=== PATIENT | female | born 1985 | race Caucasian/White ===

== ENCOUNTER 2019-02-11 12:11 | Outpatient (CLI) | payer BC, SELFPAY ==
--- NOTE | 2019-02-11 12:32 | XR_ITS ---
WS: [id number] Left shoulder, 3 views, 02/11/2019 Clinical Data: LEFT SHOULDER JOINT PAIN Comparison: None. Findings: No fractures or dislocations are seen. The AC joint is normal. The adjacent left clavicle, left scapu la and ribs are normal. The soft tissues are unremarkable. XR/XR shoulder LT min 2V* [id number] Impression: Negative left shoulder.
== END 2019-02-11 12:12 | disposition home or self-care (01) ==
LOC: RAD 12:15
PROVIDERS: Family Provider Family Medicine; PCP Family Medicine; Visit Provider Family Medicine
DX: M25.512 Pain in left shoulder (principal)
CPT/HCPCS: 73030

== ENCOUNTER 2019-02-11 12:19 | Outpatient (CLI) | payer BC, SELFPAY | END 2019-02-11 12:20 | disposition home or self-care (01) | LOC: RAD 12:20 | PROVIDERS: Family Provider Family Medicine; PCP Family Medicine; Visit Provider Family Medicine | DX: M25.512 Pain in left shoulder (principal) ==

== ENCOUNTER → 2019-02-15 15:09 | Outpatient (BNVA) | payer BC, SELFPAY | PROVIDERS: Family Provider Family Medicine; PCP Family Medicine; Visit Provider Nurse Practitioner | DX: M47.817 Spondylosis without myelopathy or radiculopathy, lumbosacral region (principal); F17.210 Nicotine dependence, cigarettes, uncomplicated; Z79.891 Long term (current) use of opiate analgesic | CPT/HCPCS: 99213 ==

== ENCOUNTER → 2019-03-15 11:07 | Outpatient (BNVA) | payer BC, SELFPAY | PROVIDERS: Family Provider Family Medicine; PCP Family Medicine; Visit Provider Nurse Practitioner | DX: M47.817 Spondylosis without myelopathy or radiculopathy, lumbosacral region (principal); F17.210 Nicotine dependence, cigarettes, uncomplicated; Z79.891 Long term (current) use of opiate analgesic | CPT/HCPCS: 99213; 99214 ==

== ENCOUNTER → 2019-03-22 11:59 | Outpatient (BNVA) | payer BC, SELFPAY | PROVIDERS: Family Provider Family Medicine; PCP Family Medicine; Visit Provider Family Medicine | DX: M47.817 Spondylosis without myelopathy or radiculopathy, lumbosacral region (principal); G43.709 Chronic migraine without aura, not intractable, without status migrainosus; F41.9 Anxiety disorder, unspecified; J20.8 Acute bronchitis due to other specified organisms; D50.9 Iron deficiency anemia, unspecified | CPT/HCPCS: 82728; 83540; 83550; 85025 ==

== ENCOUNTER 2019-05-31 | Outpatient (CLI) | payer SELFPAY | END 2019-05-31 23:00 | disposition home or self-care (01) | LOC: RADWPI 09-23 13:42 | PROVIDERS: PCP Family Medicine; Visit Provider Family Medicine | DX: M25.512 Pain in left shoulder (principal); N39.3 Stress incontinence (female) (male) | CPT/HCPCS: 80053; 81000; 87077; 87086; 87186 ==

== ENCOUNTER 2019-06-18 07:42 | Outpatient (RCR) | payer BC, SELFPAY | END 2019-07-07 23:59 | disposition home or self-care (01) | LOC: SPT 07:42 | PROVIDERS: PCP Family Medicine; Referring Provider Family Medicine; Visit Provider Family Medicine | DX: G89.29 Other chronic pain (principal); M25.511 Pain in right shoulder | CPT/HCPCS: 97110; 97162 ==

== ENCOUNTER → 2019-08-08 09:25 | Outpatient (BNVA) | payer BC, SELFPAY | PROVIDERS: PCP Family Medicine; Visit Provider Nurse Practitioner | DX: M54.41 Lumbago with sciatica, right side (principal); M54.42 Lumbago with sciatica, left side; M25.512 Pain in left shoulder; F17.210 Nicotine dependence, cigarettes, uncomplicated; Z79.891 Long term (current) use of opiate analgesic | CPT/HCPCS: 99214 ==

== ENCOUNTER → 2019-10-03 09:49 | Outpatient (BNVA) | payer BC, SELFPAY | PROVIDERS: PCP Family Medicine; Visit Provider Anesthesiology | DX: M54.42 Lumbago with sciatica, left side (principal); M54.41 Lumbago with sciatica, right side; M47.817 Spondylosis without myelopathy or radiculopathy, lumbosacral region; F17.219 Nicotine dependence, cigarettes, with unspecified nicotine-induced disorders; Z79.891 Long term (current) use of opiate analgesic | CPT/HCPCS: 99213; 99214 ==

== ENCOUNTER → 2019-12-06 09:43 | Outpatient (BNVA) | payer BC, SELFPAY | PROVIDERS: PCP Family Medicine; Visit Provider Anesthesiology | DX: M54.41 Lumbago with sciatica, right side (principal); M47.817 Spondylosis without myelopathy or radiculopathy, lumbosacral region; F17.219 Nicotine dependence, cigarettes, with unspecified nicotine-induced disorders; Z79.891 Long term (current) use of opiate analgesic | CPT/HCPCS: 99212; 99214 ==

== ENCOUNTER → 2019-12-11 16:47 | Outpatient (BNVA) | payer BC, SELFPAY | PROVIDERS: PCP Family Medicine; Visit Provider Family Medicine | DX: Z11.59 Encounter for screening for other viral diseases (principal); Z20.828 Contact with and (suspected) exposure to other viral communicable diseases; R05 Cough | CPT/HCPCS: 87635 ==

== ENCOUNTER → 2020-01-07 16:31 | Outpatient (BNVA) | payer BC, SELFPAY | PROVIDERS: PCP Family Medicine; Visit Provider Nurse Practitioner Family | DX: Z20.828 Contact with and (suspected) exposure to other viral communicable diseases (principal); J06.9 Acute upper respiratory infection, unspecified; R05 Cough | CPT/HCPCS: 87635 ==

== ENCOUNTER → 2020-02-04 09:49 | Outpatient (BNVA) | payer BC, SELFPAY | PROVIDERS: PCP Family Medicine; Visit Provider Anesthesiology | DX: M54.5 Low back pain (principal); M47.817 Spondylosis without myelopathy or radiculopathy, lumbosacral region; Z79.891 Long term (current) use of opiate analgesic; F17.219 Nicotine dependence, cigarettes, with unspecified nicotine-induced disorders | CPT/HCPCS: 80048; 83540; 99214 ==

== ENCOUNTER → 2020-03-09 15:51 | Outpatient (BNVA) | payer BC, SELFPAY | PROVIDERS: PCP Family Medicine; Visit Provider Family Medicine | DX: L65.9 Nonscarring hair loss, unspecified (principal) | CPT/HCPCS: 84443 ==

== ENCOUNTER → 2020-03-10 13:43 | Outpatient (BNVA) | payer BC, SELFPAY | PROVIDERS: PCP Family Medicine; Visit Provider Nurse Practitioner | DX: G89.29 Other chronic pain (principal); M47.817 Spondylosis without myelopathy or radiculopathy, lumbosacral region; M54.41 Lumbago with sciatica, right side; G43.709 Chronic migraine without aura, not intractable, without status migrainosus; F17.219 Nicotine dependence, cigarettes, with unspecified nicotine-induced disorders; Z79.891 Long term (current) use of opiate analgesic | CPT/HCPCS: 99214 ==

== ENCOUNTER → 2020-03-27 10:23 | Outpatient (BNVA) | payer BC, SELFPAY | PROVIDERS: PCP Family Medicine; Visit Provider Family Medicine | DX: L81.9 Disorder of pigmentation, unspecified (principal) | CPT/HCPCS: 88304 ==

== ENCOUNTER → 2020-05-13 09:03 | Outpatient (BNVA) | payer BC, SELFPAY | PROVIDERS: PCP Family Medicine; Visit Provider Nurse Practitioner | DX: G89.29 Other chronic pain (principal); M47.817 Spondylosis without myelopathy or radiculopathy, lumbosacral region; M25.511 Pain in right shoulder; M25.512 Pain in left shoulder; F17.219 Nicotine dependence, cigarettes, with unspecified nicotine-induced disorders; Z79.891 Long term (current) use of opiate analgesic; Z71.6 Tobacco abuse counseling | CPT/HCPCS: 99213; 99214 ==

== ENCOUNTER → 2020-07-08 09:53 | Outpatient (BNVA) | payer BC, SELFPAY | PROVIDERS: PCP Family Medicine; Visit Provider Nurse Practitioner | DX: G89.29 Other chronic pain (principal); M47.817 Spondylosis without myelopathy or radiculopathy, lumbosacral region; M25.512 Pain in left shoulder; M25.511 Pain in right shoulder; F17.219 Nicotine dependence, cigarettes, with unspecified nicotine-induced disorders; Z79.891 Long term (current) use of opiate analgesic; Z71.6 Tobacco abuse counseling | CPT/HCPCS: 99214 ==

== ENCOUNTER → 2020-09-09 09:27 | Outpatient (BNVA) | payer BC, SELFPAY | PROVIDERS: PCP Family Medicine; Visit Provider Nurse Practitioner | DX: G89.29 Other chronic pain (principal); M54.41 Lumbago with sciatica, right side; M47.817 Spondylosis without myelopathy or radiculopathy, lumbosacral region; M25.511 Pain in right shoulder; M25.512 Pain in left shoulder; G43.709 Chronic migraine without aura, not intractable, without status migrainosus; F17.219 Nicotine dependence, cigarettes, with unspecified nicotine-induced disorders; Z79.891 Long term (current) use of opiate analgesic; Z71.6 Tobacco abuse counseling | CPT/HCPCS: 99213 ==

== ENCOUNTER → 2020-09-22 12:17 | Outpatient (BNVA) | payer BC, SELFPAY | PROVIDERS: PCP Family Medicine; Visit Provider Nurse Practitioner | DX: R39.9 Unspecified symptoms and signs involving the genitourinary system (principal); L08.9 Local infection of the skin and subcutaneous tissue, unspecified; N39.0 Urinary tract infection, site not specified; Z71.89 Other specified counseling | CPT/HCPCS: 81000 ==

== ENCOUNTER → 2020-10-07 10:55 | Outpatient (BNVA) | payer BC, SELFPAY | PROVIDERS: PCP Family Medicine; Visit Provider Nurse Practitioner | DX: N39.0 Urinary tract infection, site not specified (principal) | CPT/HCPCS: 81000 ==

== ENCOUNTER → 2020-11-05 09:03 | Outpatient (BNVA) | payer BC, SELFPAY | PROVIDERS: PCP Family Medicine; Visit Provider Nurse Practitioner | DX: G89.29 Other chronic pain (principal); M47.817 Spondylosis without myelopathy or radiculopathy, lumbosacral region; M25.512 Pain in left shoulder; M25.511 Pain in right shoulder; G43.709 Chronic migraine without aura, not intractable, without status migrainosus; F17.219 Nicotine dependence, cigarettes, with unspecified nicotine-induced disorders; Z79.891 Long term (current) use of opiate analgesic; Z71.6 Tobacco abuse counseling | CPT/HCPCS: 99213; 99214 ==

== ENCOUNTER → 2020-12-24 09:08 | Outpatient (BNVA) | payer BC, SELFPAY | PROVIDERS: PCP Family Medicine; Visit Provider Anesthesiology | DX: G89.29 Other chronic pain (principal); M47.817 Spondylosis without myelopathy or radiculopathy, lumbosacral region; F17.219 Nicotine dependence, cigarettes, with unspecified nicotine-induced disorders; Z79.891 Long term (current) use of opiate analgesic; Z79.1 Long term (current) use of non-steroidal anti-inflammatories (NSAID) | CPT/HCPCS: 99214 ==

== ENCOUNTER 2021-02-13 22:32 | Emergency (ER) | payer BC, SELFPAY ==
--- NOTE | 2021-02-13 22:35 | ED_ITS ---
HPI - Anxiety General: Stated Complaint: ANXIETY Time Seen by Provider: 02/13/21 22:32 Source: patient and EMS Mode of arrival: EMS Limitations: no limitations History of Present Illness: HPI narrative: 35-year-old female states that she has a long history of anxiety she has been out of her venlafaxine has been taking her BuSpar but states she just had a panic attack roughly an hour ago she states she was hyperventilating she states that since being in the [place] she feels a lot better here she is comfortable able to speak in full sentences she denies any suicidal homicidal ideations denies any recent drug use. Associated symptoms: Deny chest pain, chills, fever(s), headache(s), nausea or vomiting Review of Systems Const: Denies: fever(s), chills, body aches or change in appetite Eyes: Denies: blurry vision or eye discomfort ENMT: Denies: throat pain or dental pain Card: Denies: chest pain Resp: Denies: dyspnea GI: Denies: abdominal pain, nausea, vomiting or diarrhea : Denies: dysuria Musc: Denies: neck pain or back pain Skin/Breast: Denies: rash Neuro: Denies: headache(s) Psych: Reports: anxiety Willie/Lymph: Denies: easy bruising All/Imm: Denies: urticaria PFSH ED PFSH: Medical History (Updated 02/13/21 @ 22:36 by Sayda Chavez MD) Acute bacterial bronchitis Acute URI Anxiety and depression Chronic migraine w/o aura w/o status migrainosus, not intractable Chronic pain in right shoulder Cough with exposure to COVID-19 virus Iron deficiency anemia Low back pain radiating to right leg Smoker unmotivated to quit Spondylosis without myelopathy or radiculopathy, lumbosacral region Surgical History Hx of section 2004, 2009, 2017 S/P arthroscopy of right shoulder toal of 2 surgeries 2010-repaired the labrem and rotator, 2013 debrievment to repair rotator S/P total hysterectomy (~10/11/18) TVH OVARIES SPARED. S/P tubal ligation Family History Mother Diabetes Hypertension Grandmother Diabetes Cancer SKIN CANCER Hypertension Maternal grandmother Family/Other Hypertension Maternal uncle Ovarian cancer Cousin Maternal aunt Other Lung disease Denies family history of Colon cancer Breast cancer Uterine cancer Social History Alcohol intake: never History of recent travel: No Additional social history: - Tobacco use: Current everyday smoker; 1pk daily Alcohol use: Social Drug use: Denies Physical Exam Const: COMMON NORMALS: no acute distress, patient oriented x3 and healthy appearing HENMT: COMMON NORMALS: normocephalic and atraumatic HEAD & SCALP: normocephalic and atraumatic Eye: COMMON NORMALS: Equal, round and reactive pupils present and EOMs intact bilaterally PUPIL: Yes Equal, round and reactive pupils present Neck/C-Spine: COMMON NORMALS: full ROM and supple Chest: COMMONS NORMALS: normal inspection of the chest and normal palpation of entire chest wall Resp: COMMON NORMALS: normal respiratory effort, No retractions, No use of accessory muscles and clear to auscultation bilaterally AUSCULTATION: clear to auscultation bilaterally Cardio: COMMON NORMALS: regular rate, regular rhythm and No murmurs present (Cardio) RATE: regular rate RHYTHM: regular rhythm GI: COMMON NORMALS: Normal to inspection, nondistended, normoactive bowel sounds present, Soft to palpation, non-tender and no masses PALPATION: Yes Soft to palpation Extremity: COMMON NORMALS: normal to inspection and full ROM Neuro: COMMON NORMALS: patient oriented x3, moves all extremities and no focal motor deficits Psych: COMMON NORMALS: mental status grossly normal, Normal thought process present and cooperative MOOD & AFFECT: Yes anxious THOUGHT PROCESS: Normal thought process present Skin: COMMON NORMALS: no rashes or lesions noted and no wounds GENERAL SKIN EXAM: no rashes or lesions noted MDM - Anxiety MDM Narrative: Medical decision making narrative: Patient presents here with anxiety she feels much improved on the ambulance ride here she is not suicidal not homicidal she states she just like an Ativan and go since she had felt improved she has long history of anxiety and has these breakthrough attacks she is also been out of her venlafaxine will refill that have her follow-up with PCP and return if worsening. Discharge Plan Discharge Patient Disposition: Home Clinical Impression: Anxiety Condition: Stable Prescriptions: Continued venlafaxine 75 mg capsule,extended release 24hr 75 mg PO DAILY Qty: 30 RF: 5 No Action venlafaxine 150 mg capsule,extended release 24hr 150 mg PO QDAY Qty: 30 RF: 5 hydrocodone-acetaminophen 10-325 mg tablet 1 tab PO .5 times daily PRN (Reason: pain) 30 Days Qty: 150 RF: 0 hydrocodone-acetaminophen 10-325 mg tablet 1 tab PO .five times daily PRN (Reason: pain) 30 Days Qty: 150 RF: 0 albuterol sulfate [Ventolin HFA] 90 mcg/actuation HFA aerosol inhaler 2 puff INHALATION Q6H PRNRF: 0 povidone-iodine [Betadine Swabsticks] 10 % swab 1 applic topical ONCE PRN (Reason: disinfection) Qty: 1 RF: 0 lidocaine (PF) 20 mg/mL (2 %) solution 3 mg SUBCUT ONCE PRN (Reason: anesthesia) Qty: 0.15 RF: 0 ibuprofen 800 mg tablet 800 mg PO Q8H Qty: 90 RF: 2 tizanidine 4 mg capsule 4 mg PO TID PRN (Reason: muscle spasticity) Qty: 90 RF: 2 gabapentin 800 mg tablet 800 mg PO QID Qty: 120 RF: 2 buspirone 7.5 mg tablet 7.5 mg PO BID PRN (Reason: anxiety) Qty: 60 RF: 0 topiramate 50 mg tablet 50 mg PO BID Qty: 60 RF: 5 Discharge Orders: Discharge ED (Routine); Ordered 02/13/21 Ordered By: Sayda Chavez Referrals: Casandra Gilliam DO [Primary Care Provider] - 1-3 days Discharge Diet: Advance as tolerated Discharge Activity: Resume usual activity Patient Instructions: Opioid Safety Coding Level of Care Code ED Bilingual Interpreter for Ian Jarrell
[2021-02-13 22:37] VITALS: BP 124/93; PULSE 115; RESP 18; TEMP 37.2; O2SAT 96; BMI 25.8
[2021-02-13] MEDS: LORazepam 2 mg Tablet PO (22:39)
[2021-02-13 22:43] VITALS: BP 121/85; PULSE 110; RESP 18; O2SAT 96
== END 2021-02-13 22:44 | disposition home or self-care (01) ==
PROVIDERS: Emergency Provider Emergency Medicine; PCP Family Medicine
DX: F41.9 Anxiety disorder, unspecified (principal); F32.A Depression, unspecified; F17.210 Nicotine dependence, cigarettes, uncomplicated
CPT/HCPCS: 99283

== ENCOUNTER 2021-04-28 16:59 | Emergency (ER) | payer BC, SELFPAY ==
[2021-04-28 17:12] VITALS: BMI 25.2
--- NOTE | 2021-04-28 17:23 | W.ED.GENADLT ---
HPI - General Adult General: Chief complaint: General Medical Stated complaint: Abcess beneath arm Time Seen by Provider: 04/28/21 17:23 History of Present Illness: 36-year-old female comes in today for complaints of swollen tender lesion to the left axilla. Patient reports symptoms for the last 3 to 4 days. Worsening tenderness is noted. Patient is alert and oriented. Patient moves extremities well. Associated symptoms: Reports chest pain and dyspnea Review of Systems General: Reports: 10 or more systems reviewed and unremarkable except in HPI and below Card: Reports: chest pain Resp: Reports: dyspnea Musc: Reports: extremity pain Skin/Breast: Reports: new lesions PFSH ED PFSH: Medical History Acute bacterial bronchitis Acute URI Anxiety and depression Chronic migraine w/o aura w/o status migrainosus, not intractable Chronic pain in right shoulder Cough with exposure to COVID-19 virus Iron deficiency anemia Low back pain radiating to right leg Smoker unmotivated to quit Spondylosis without myelopathy or radiculopathy, lumbosacral region Surgical History Hx of section 2004, 2009, 2017 S/P arthroscopy of right shoulder toal of 2 surgeries 2010-repaired the labrem and rotator, 2013 debrievment to repair rotator S/P total hysterectomy (~10/11/18) TVH OVARIES SPARED. S/P tubal ligation Family History Mother Diabetes Hypertension Grandmother Diabetes Cancer SKIN CANCER Hypertension Maternal grandmother Family/Other Hypertension Maternal uncle Ovarian cancer Cousin Maternal aunt Other Lung disease Denies family history of Colon cancer Breast cancer Uterine cancer Social History Smoking and tobacco status: current every day smoker cigarettes Packs smoked per day: 1 History of recent travel: No Additional social history: - Tobacco use: Current everyday smoker; 1pk daily Alcohol use: Social Drug use: Denies Physical Exam Const: COMMON NORMALS: alert HENMT: COMMON NORMALS: normocephalic HEAD & SCALP: normocephalic Resp: COMMON NORMALS: normal respiratory effort Cardio: COMMON NORMALS: regular rate and regular rhythm RATE: regular rate RHYTHM: regular rhythm Extremity: LEFT UPPER EXTREMITY: Yes upper arm (Erythematous axillary lesion) Neuro: SENSORIUM/ORIENTATION: Yes alert Psych: COMMON NORMALS: cooperative Skin: COMMON NORMALS: turgor normal GENERAL SKIN EXAM: turgor normal LESIONS: lesion noted (Left axilla, 3 cm area of redness, central fluctuance) Procedures Abscess I/D Site: upper extremity (Left axilla) Side (if applicable): left Sedation/analgesia: none Technique: incised with #11 blade Amount of fluid expressed (mL): 2 Irrigation: No Packing used?: none Complications: pain [facility] - General Adult Medical Decision Making 36-year-old female comes in with a small abscess to the left axilla. On exam there is a area of erythema approximately 3 cm with a central fluctuant 1 cm abscess. No signs of extensive cellulitis is noted. Differential diagnosis includes but not limited to HSP, folliculitis, abscess. Stab incision was performed on the abscess with good results of drainage of purulent fluid. Patient tolerated well. Patient was given 1 hydrocodone 7-1/2 mg to help with pain. Patient was started on Bactrim DS 1 tablet twice a day for 7 days. Patient was recommended to follow-up as needed or return to the ER for worsening symptoms. Patient reported understanding. Discharge Plan Discharge Patient Disposition: Home Clinical Impression: Abscess of axilla, left Condition: Stable Prescriptions: Continued Bactrim DS 800-160 mg tablet 1 tab PO BID 7 Days Qty: 14 0RF No Action venlafaxine 150 mg capsule,extended release 24hr 150 mg PO QDAY Qty: 90 1RF Rx Instructions: 340 B hydrocodone-acetaminophen 10-325 mg tablet 1 tab PO .5 times daily PRN (Reason: pain) 30 Days Qty: 150 0RF Rx Instructions: Fill on or after 03/13/21 340-B hydrocodone-acetaminophen 10-325 mg tablet 1 tab PO .five times daily PRN (Reason: pain) 30 Days Qty: 150 0RF Rx Instructions: Fill on or after 04/11/21 340-B gabapentin 800 mg tablet 800 mg PO QID 30 Days Qty: 120 1RF tizanidine 4 mg capsule 4 mg PO TID PRN (Reason: muscle spasticity) 30 Days Qty: 90 1RF Rx Instructions: 340-B albuterol sulfate [Ventolin HFA] 90 mcg/actuation HFA aerosol inhaler 2 puff INHALATION Q6H PRN0RF povidone-iodine [Betadine Swabsticks] 10 % swab 1 applic topical ONCE PRN (Reason: disinfection) Qty: 1 0RF lidocaine (PF) 20 mg/mL (2 %) solution 3 mg SUBCUT ONCE PRN (Reason: anesthesia) Qty: 0.15 0RF ibuprofen 800 mg tablet 800 mg PO Q8H Qty: 90 2RF Rx Instructions: 340-B buspirone 7.5 mg tablet 7.5 mg PO BID PRN (Reason: anxiety) Qty: 60 0RF venlafaxine 75 mg capsule,extended release 24hr 75 mg PO DAILY Qty: 90 1RF Rx Instructions: Take with 150 mg pill 340 B Discharge Orders: Discharge ED (Routine); Ordered 04/28/21 Ordered By: Roberto Hodgson Referrals: Casandra Gilliam DO [Primary Care Provider] - Discharge Diet: Usual diet Discharge Activity: Increase activity as tolerated Patient Instructions: Abscess Incision and Drainage (DC) Activity Restrictions/Additional Instructions: Use warm moist pack to the area and gentle massage to express further drainage. Drink plenty of water with antibiotic. Follow-up with primary care in 3 days for recheck. Return to ER for new concerns. Coding Level of Care Code ED Employment Agency Manager for Ian Jarrell
[2021-04-28] MEDS: HYDROcodone-acetaminophen 7.5-325 mg Tablet 1 TAB PO (18:19)
== END 2021-04-28 19:03 | disposition home or self-care (01) ==
PROVIDERS: Emergency Provider Nurse Practitioner Family; PCP Family Medicine
DX: L02.412 Cutaneous abscess of left axilla (principal); F17.210 Nicotine dependence, cigarettes, uncomplicated
CPT/HCPCS: 10060; 99283

== ENCOUNTER 2021-06-19 22:04 | Emergency (ER) | payer BC, MEDICAID, SELFPAY ==
[2021-06-19 22:07] VITALS: BP 138/75; PULSE 91; RESP 14; TEMP 36.9; O2SAT 99
[2021-06-19 22:37] LABS: HCG Qualitative Urine. Negative (Negative)
[2021-06-19 22:43] LABS: Add Urine Microscopic? YES; Bilirubin Urine Neg (Negative); Blood Urine 3+ (Negative); Glucose Urine UA Norm (Normal); Ketones Urine Negative (Negative); Leukocyte Esterase Urine 2+ (Negative); Nitrate Urine Negative (Negative); Protein Urine Neg (Negative); Specific Gravity, Urine 1.015 (1.005-1.030); Urine Appearance Clear (CLEAR); Urine Color Yellow (Yellow); Urobilinogen Urine Norm (Negative); pH Urine 7 (5-7)
[2021-06-19 22:44] LABS: Add Urine Culture? Yes; Bacteria Urine TRACE /hpf; RBC Urine 0-4 /hpf (0-2); Trichomonas Urine 1+ /hpf; WBC Urine 25-40 /hpf (0-5)
--- NOTE | 2021-06-19 22:54 | ED_ITS ---
HPI - Female Genitourinary General: Chief complaint: Urogenital-Female Stated complaint: PT states kidney infection Time Seen by Provider: 06/19/21 22:53 History of Present Illness: 36-year-old female comes in today with complaints of urinary difficulty and discomfort. Patient reports noticing some blood in the urine. Patient reports no significant abnormal bleeding or vaginal discharge. Patient appears mildly unwell but not toxic. Patient appears in mild to moderate pain. Associated symptoms: Deny nausea Review of Systems General: Reports: 10 or more systems reviewed and unremarkable except in HPI and below Const: Denies: fever(s) Card: Denies: chest pain Resp: Denies: dyspnea GI: Denies: nausea or vomiting : Reports: difficulty voiding and hematuria Skin/Breast: Denies: rash PFSH ED PFSH: Medical History Acute bacterial bronchitis Acute URI Anxiety and depression Chronic migraine w/o aura w/o status migrainosus, not intractable Chronic pain in right shoulder Cough with exposure to COVID-19 virus Iron deficiency anemia Low back pain radiating to right leg Smoker unmotivated to quit Spondylosis without myelopathy or radiculopathy, lumbosacral region Surgical History Hx of section 2004, 2009, 2017 S/P arthroscopy of right shoulder toal of 2 surgeries 2010-repaired the labrem and rotator, 2013 debrievment to repair rotator S/P total hysterectomy (~10/11/18) TVH OVARIES SPARED. S/P tubal ligation Family History Mother Diabetes Hypertension Grandmother Diabetes Cancer SKIN CANCER Hypertension Maternal grandmother Family/Other Hypertension Maternal uncle Ovarian cancer Cousin Maternal aunt Other Lung disease Denies family history of Colon cancer Breast cancer Uterine cancer Social History Smoking and tobacco status: current every day smoker cigarettes Packs smoked per day: 1 History of recent travel: No Additional social history: - Tobacco use: Current everyday smoker; 1pk daily Alcohol use: Social Drug use: Denies Physical Exam Const: COMMON NORMALS: alert HENMT: COMMON NORMALS: normocephalic HEAD & SCALP: normocephalic Neck/C-Spine: COMMON NORMALS: full ROM Neuro: SENSORIUM/ORIENTATION: Yes alert Course Vital Signs: Vital signs: Vital Signs Temperature 98.5 F 06/19/21 22:07 Pulse Rate 84 06/20/21 00:19 Respiratory Rate 18 06/20/21 00:19 Blood Pressure 121/78 06/20/21 00:19 Pulse Oximetry 99 06/20/21 00:19 MDM - Female Medical Decision Making Patient comes in today for complaints of urinary discomfort. Patient noticed some blood in the urine. On exam abdomen soft nontender. Bowel sounds were normal. Skin was warm and dry. Vital signs were normal. Differential diagnosis include UTI, STI, renal calculi. Urinalysis did indicate white blood cells and also noted trichomonas. Urine was then sent to lab for culture and gonorrhea and chlamydia. Patient be treated with 1 g Rocephin, 2 g metronidazole, and doxycycline. Patient be continued on doxycycline 100 mg twice a day for 7 days on discharge. Patient was recommended to follow-up with primary care in 1 week for recheck. Patient reported understanding of care plan and need for follow-up and need for secondary protection against STIs. Lab Data Laboratory Results HCG, Qual Negative (Negative) 06/19/21 22:09 Urine Color Yellow (Yellow) 06/19/21 22: Urine Appearance Clear (CLEAR) 06/19/21 22:09 Urine pH 7 (5-7) 06/19/21 22:09 Ur Specific Hardy 1.015 (1.005-1.030) 06/19/21 22:09 Urine Protein Neg (Negative) 06/19/21 22:09 Urine Glucose (UA) Norm (Normal) 06/19/21 22:09 Urine Ketones Negative (Negative) 06/19/21 22:09 Urine Blood 3+ (Negative) H 06/19/21 22:09 Urine Nitrate Negative (Negative) 06/19/21 22:09 Urine Bilirubin Neg (Negative) 06/19/21 22:09 Urine Urobilinogen Norm mg/dL (Negative) 06/19/21 22:09 Ur Leukocyte Esterase 2+ (Negative) H 06/19/21 22:09 Urine RBC 0-4 /hpf (0-2) H 06/19/21 22:09 Urine WBC 25-40 /hpf (0-5) H 06/19/21 22:09 Ur Squamous Epith Cells 5-10 /hpf (0-5) H 06/19/21 22:09 Amorphous Sediment Not Reportable 06/19/21 22:09 Urine Bacteria Trace /hpf (NONE) 06/19/21 22:09 Urine Trichomonas 1+ /hpf H 06/19/21 22:09 Discharge Plan Discharge Patient Disposition: Home Clinical Impression: Trichomoniasis Urinary tract infection Qualifiers: Urinary tract infection type: site unspecified Hematuria presence: with hematuria Qualified Code(s): N39.0 - Urinary tract infection, site not specified Condition: Stable Prescriptions: New doxycycline monohydrate 100 mg capsule 100 mg PO BID 7 Days Qty: 14 0RF No Action venlafaxine 150 mg capsule,extended release 24hr 150 mg PO QDAY Qty: 90 1RF Rx Instructions: 340 B hydrocodone-acetaminophen 10-325 mg tablet 1 tab PO .5 times daily PRN (Reason: pain) 30 Days Qty: 150 0RF Rx Instructions: Fill on or after 03/13/21 340-B tizanidine 4 mg capsule 4 mg PO TID PRN (Reason: muscle spasticity) 30 Days Qty: 90 1RF Rx Instructions: 340-B albuterol sulfate [Ventolin HFA] 90 mcg/actuation HFA aerosol inhaler 2 puff INHALATION Q6H PRN0RF povidone-iodine [Betadine Swabsticks] 10 % swab 1 applic topical ONCE PRN (Reason: disinfection) Qty: 1 0RF lidocaine (PF) 20 mg/mL (2 %) solution 3 mg SUBCUT ONCE PRN (Reason: anesthesia) Qty: 0.15 0RF ibuprofen 800 mg tablet 800 mg PO Q8H Qty: 90 2RF Rx Instructions: 340-B buspirone 7.5 mg tablet 7.5 mg PO BID PRN (Reason: anxiety) Qty: 60 0RF venlafaxine 75 mg capsule,extended release 24hr 75 mg PO DAILY Qty: 90 0RF Rx Instructions: Take with 150 mg pill 340 B gabapentin 800 mg tablet 800 mg PO QID 30 Days Qty: 120 1RF hydrocodone-acetaminophen 10-325 mg tablet 1 tab PO .five times daily PRN (Reason: pain) 30 Days Qty: 150 0RF Rx Instructions: Refill on or after 06/12/2021, Dr. Gilliam's patient Bactrim DS 800-160 mg tablet 1 tab PO BID 7 Days Qty: 14 0RF Discharge Orders: Discharge ED (Routine); Ordered 06/19/21 Ordered By: Roberto Hodgson Referrals: Casandra Gilliam DO [Primary Care Provider] - Discharge Diet: Usual diet Discharge Activity: Increase activity as tolerated Patient Instructions: Urinary Tract Infection in Women (ED) Activity Restrictions/Additional Instructions: Drink plenty of water with medication. Take doxycycline 100 mg twice a day for the next 7 days. Follow-up with primary care in 1 week for recheck. Return to ER for new concerns. We will notify you of any outstanding labs or your doctor may call to find out the results. Coding Level of Care Code ED Product Assurance Engineer for Anag Fwd Exam Expanded Problem Focused
[2021-06-19] MEDS: HYDROcodone-acetaminophen 5-325 mg Tablet 1 TAB PO (23:12)
[2021-06-19] MEDS: metroNIDAZOLE 500 MG Tablet 2000 MG PO (23:13)
[2021-06-19] MEDS: doxycycline 100 mg Tablet PO (23:13)
[2021-06-19] MEDS: cefTRIAXone 1,000 MG in lidocaine 1% 2.1 ML 9999 MG IM (23:17)
[2021-06-20 00:19] VITALS: BP 121/78; PULSE 84; RESP 18; O2SAT 99
== END 2021-06-20 00:09 | disposition home or self-care (01) ==
PROVIDERS: Emergency Medicine; Emergency Provider Nurse Practitioner Family; PCP Family Medicine
DX: N39.0 Urinary tract infection, site not specified (principal); R31.9 Hematuria, unspecified; A59.9 Trichomoniasis, unspecified
CPT/HCPCS: 81001; 81025; 87077; 87086; 87186; 87491; 87591; 96372; 99283; J0696

== ENCOUNTER → 2021-10-27 17:15 | Outpatient (BNVA) | payer MEDICAID, SELFPAY | PROVIDERS: PCP Family Medicine; Visit Provider Registered Nurse Neonatal Intensive Care | DX: J02.9 Acute pharyngitis, unspecified (principal) | CPT/HCPCS: 87880 ==

== ENCOUNTER 2022-01-21 14:25 | Outpatient (CLI) | payer MEDICAID, SELFPAY ==
--- NOTE | 2022-01-21 14:31 | MR_ITS ---
WS: [id number] MRI LUMBAR SPINE NONCONTRAST TECHNIQUE: Sagittal T1, T2 and STIR imaging. Axial T1 and T2 imaging. CLINICAL INFORMATION: VERTBROGENIC LOW BACK PAIN COMPARISON: None. FINDINGS: Counting performed from the craniocervical junction. Mild lumbar curve. No acute compression. No high-grade central canal stenosis. Mild disc bulging wors e L4-L5 and L5-S1. L1-L2: Normal. L2-L3: No significant disc bulging. Spinal canal and foramen are patent. L3-L4: Mild annular bulging. Slight effacement of the ventral thecal sac. Mild facet arthropathy. Spi nal canal and foramen are patent. L4-L5: Mild disc bulging with slight effacement of ventral thecal sac. Impingement subarticular reces s bilaterally. Mild facet arthropathy. Foramen are patent. L5-S1: Shallow central disc protrusion. Slight contact of the traversing S1 nerve roots bilaterally. Mild central canal stenosis. Moderate facet arthropathy. Foramen are patent. Visualized pelvic bony structures: Normal. Paravertebral soft tissues: Normal. MR/MR lumbar spine wo con* [id number] IMPRESSION: 1. Mild lumbar curve. No acute compression. No high-grade central canal stenos is. 2. Mild annular bulging L4-L5 with slight narrowing of the subarticular recess bilaterally. Small annular fissure at this level. 3. Shallow central disc protrusion L5-S1 with slight impingement traversing S1 nerve roots bilaterally. Mild central canal stenosis. 4. Mild facet arthropathy L4-L5 and L5-S1.
== END 2022-01-21 14:26 | disposition home or self-care (01) ==
LOC: RAD 14:25
PROVIDERS: PCP Family Medicine; Visit Provider Anesthesiology Pain Medicine
DX: M54.51 Vertebrogenic low back pain (principal); M47.817 Spondylosis without myelopathy or radiculopathy, lumbosacral region; M48.07 Spinal stenosis, lumbosacral region
CPT/HCPCS: 72148

== ENCOUNTER 2022-05-15 09:53 | Emergency (ER) | payer MEDICAID, SELFPAY ==
[2022-05-15 09:57] VITALS: BP 141/81; PULSE 80; RESP 16; TEMP 36.7; O2SAT 100
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
--- NOTE | 2022-05-15 10:03 | XRR_ITS ---
PROCEDURE INFORMATION: Exam: XR Right Hand Exam date and time: 05/15/2022 10:11 AM Age: 37 years old Clinical indication: Two scratches to top of hand; Additional info: Injury TECHNIQUE: Imaging protocol: Radiologic exam of the right hand. Views: 3 or more views. COMPARISON: No relevant prior studies available. FINDINGS: Bones/joints: The scapholunate and lunotriquetral intervals are maintained. No chondrocalcinosis is seen. No fracture, dislocation or subluxation. No periosteal reaction or supsicious bone lesion. Soft tissues: Mild dorsal soft tissue swelling. XR/XR hand RT min 3V* [id number] IMPRESSION: 1. Mild dorsal soft tissue swelling. 2. No acute fracture is seen.
[2022-05-15] MEDS: tetanus-dipt-pertussis 0.5 mL SDV IM (10:16)
[2022-05-15 10:36] VITALS: BP 141/81; PULSE 80; RESP 16; TEMP 36.7; O2SAT 100
== END 2022-05-15 10:37 | disposition home or self-care (01) ==
PROVIDERS: Emergency Provider Physician Assistant; PCP Family Medicine
DX: S61.411A Laceration without foreign body of right hand, initial encounter (principal); F17.210 Nicotine dependence, cigarettes, uncomplicated; W26.0XXA Contact with knife, initial encounter; Z23 Encounter for immunization
CPT/HCPCS: 12001; 73130; 90471; 90715; 99283

== ENCOUNTER 2022-05-16 20:19 | Emergency (ER) | payer MEDICAID, SELFPAY ==
[2022-05-16 20:33] VITALS: BP 137/79; PULSE 70; RESP 16; TEMP 36.8; O2SAT 100
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
[2022-05-16] MEDS: silver nitrate applicator 1 EACH TOPICAL (20:53)
== END 2022-05-16 21:12 | disposition home or self-care (01) ==
PROVIDERS: Emergency Provider Emergency Medicine; PCP Family Medicine
DX: S61.411A Laceration without foreign body of right hand, initial encounter (principal); F17.210 Nicotine dependence, cigarettes, uncomplicated; W26.0XXA Contact with knife, initial encounter
CPT/HCPCS: 99283

== ENCOUNTER → 2022-06-30 17:06 | Outpatient (BNVA) | payer MEDICAID, SELFPAY | PROVIDERS: PCP Family Medicine; Visit Provider Family Medicine | DX: R35.0 Frequency of micturition (principal) | CPT/HCPCS: 81000; 87077; 87086; 87184 ==

== ENCOUNTER → 2022-11-11 10:06 | Outpatient (BNVA) | payer MEDICAID, SELFPAY | PROVIDERS: PCP Family Medicine; Visit Provider Family Medicine | DX: F41.9 Anxiety disorder, unspecified (principal); F32.1 Major depressive disorder, single episode, moderate | CPT/HCPCS: 80053; 80061; 84439; 84443; 85025 ==

== ENCOUNTER → 2022-12-06 12:09 | Outpatient (BNVA) | payer MEDICAID, SELFPAY | PROVIDERS: PCP Family Medicine; Visit Provider Family Medicine | DX: L98.9 Disorder of the skin and subcutaneous tissue, unspecified (principal) | CPT/HCPCS: 88304 ==

== ENCOUNTER → 2023-03-21 10:34 | Outpatient (BNVA) | payer MEDICAID, SELFPAY | PROVIDERS: PCP Family Medicine; Visit Provider Emergency Medicine | DX: J06.9 Acute upper respiratory infection, unspecified (principal) | CPT/HCPCS: 87400 ==

== ENCOUNTER → 2023-03-28 11:03 | Outpatient (BNVA) | payer MEDICAID, SELFPAY | PROVIDERS: PCP Family Medicine; Visit Provider Family Medicine | DX: N95.1 Menopausal and female climacteric states (principal) | CPT/HCPCS: 82672; 83001; 83002; 84144 ==

== ENCOUNTER → 2023-06-01 14:43 | Outpatient (BNVA) | payer MEDICAID, SELFPAY | PROVIDERS: PCP Family Medicine; Visit Provider Orthopaedic Surgery | DX: M47.22 Other spondylosis with radiculopathy, cervical region (principal); M54.9 Dorsalgia, unspecified; M54.2 Cervicalgia | CPT/HCPCS: 72050; 72072 ==

== ENCOUNTER 2023-10-11 18:44 | Emergency (ER) | payer MEDICAID, SELFPAY ==
[2023-10-11 18:48] VITALS: BP 147/53; PULSE 86; RESP 18; TEMP 37.4; O2SAT 99; BMI 22.6
--- NOTE | 2023-10-11 19:04 | W.ED.ALLEREA ---
HPI - Allergic Reaction General: Chief complaint: Allergic Reaction Stated complaint: allergic reaction Time Seen by Provider: 10/11/23 18:57 History of Present Illness: HPI narrative: 38-year-old female comes in today for complaints of red wasp sting to the right lower extremity. Patient reports 3 different stings on the lower leg. Patient had injected herself with EpiPen that she had from a prior exam patient continues to complain of some shortness of breath. Patient appears anxious. Patient had some red whelps to the right lower leg in 3 different areas. No significant urticaria is noted. No facial swelling is noted. Posterior pharynx is normal. Lungs are clear to auscultation. Vital signs are normal except for some elevated blood pressure at 147 systolic. Related Data Home Medications Medication Instructions Recorded Confirmed albuterol sulfate 90 mcg/actuation 2 puff inhalation Q6H PRN 03/22/19 09/25/23 aerosol inhaler (Ventolin HFA) gabapentin 800 mg tablet 800 mg PO TID 06/30/22 09/25/23 latanoprost 0.005 % eye drops 1 drp ophthalmic (eye) DAILY 12/06/22 09/25/23 baclofen 20 mg tablet 20 mg PO BID 04/25/23 09/25/23 Previous Rx's Medication Instructions Recorded hydrocodone 10 mg-acetaminophen 1 tab PO .five times daily PRN 06/10/21 325 mg tablet pain 30 days #150 tabs cetirizine 10 mg tablet (Zyrtec) 10 mg PO DAILY #30 tabs 05/05/23 famotidine 40 mg tablet 40 mg PO DAILY #30 tabs 05/05/23 prednisone 20 mg tablet 40 mg (2 x 20 mg) PO DAILY 5 days 05/05/23 #10 tabs buspirone 30 mg tablet 30 mg PO BID #60 tabs 09/25/23 escitalopram oxalate 20 mg tablet See Rx Instructions .Route 09/25/23 .COMPLEX #30 tabs hydroxyzine HCl 50 mg tablet 50 mg PO QID PRN anxiety/hives 09/25/23 #120 tabs nicotine 21 mg/24 hr daily 1 patch transdermal DAILY #28 ea 09/25/23 transdermal patch prazosin 2 mg capsule 2 mg PO .HS #30 caps 09/25/23 trazodone 50 mg tablet 100 mg (2 x 50 mg) PO .HS PRN 09/25/23 insomnia #60 tabs varenicline 1 mg tablet (Chantix) 1 mg PO BID #56 tabs 09/25/23 epinephrine 0.3 mg/0.3 mL 0.3 mg (0.3 mL) IM Q10M PRN 10/11/23 injection, auto-injector hypersensitivity reaction #2 ea prednisone 20 mg tablet 20 mg PO DAILY 3 days #3 tabs 10/11/23 Allergies Allergy/AdvReac Type Severity Reaction Status Date / Time amoxicillin Allergy ALGY-Anaphy Verified 09/25/23 14:22 laxis bupropion [From Wellbutrin] Allergy ADR-Seizure Verified 09/25/23 14:22 clindamycin Allergy ALGY-Anaphy Verified 09/25/23 14:22 laxis latex Allergy ALGY-Rash Verified 09/25/23 14:22 Penicillins Allergy ALGY-Anaphy Verified 09/25/23 14:22 laxis sumatriptan Allergy Unknown Verified 09/25/23 14:22 Review of Systems General: Reports: 10 or more systems reviewed and unremarkable except in HPI and below Resp: Reports: dyspnea PFSH ED PFSH: Medical History Psychiatric care Strain of right knee Smoker unmotivated to quit Cough with exposure to COVID-19 virus Acute URI Acute bacterial bronchitis Iron deficiency anemia Anxiety and depression Chronic migraine w/o aura w/o status migrainosus, not intractable Chronic pain in right shoulder Low back pain radiating to right leg Spondylosis without myelopathy or radiculopathy, lumbosacral region Surgical History S/P arthroscopy of right shoulder toal of 2 surgeries 2010-repaired the labrem and rotator, 2013 debrievment to repair rotator Hx of section 2004, 2009, 2017 S/P tubal ligation S/P total hysterectomy (~10/11/18) TVH OVARIES SPARED. Family History Mother Diabetes Hypertension Grandmother Diabetes Cancer SKIN CANCER Hypertension Maternal grandmother Family/Other Hypertension Maternal uncle Ovarian cancer Cousin Maternal aunt Other Lung disease Denies family history of Colon cancer Breast cancer Uterine cancer Social History Smoking and tobacco/nicotine status: current every day tobacco/nicotine user cigarettes Packs smoked per day: 1 Substance/Drug Use: never Additional social history: - Tobacco use: Current everyday smoker; 1pk daily Alcohol use: Social Drug use: Denies Physical Exam Const: COMMON NORMALS: alert HENMT: COMMON NORMALS: normocephalic HEAD & SCALP: normocephalic THROAT: posterior oropharynx normal Neck/C-Spine: COMMON NORMALS: full ROM Chest: COMMONS NORMALS: normal inspection of the chest Resp: COMMON NORMALS: normal respiratory effort and clear to auscultation bilaterally AUSCULTATION: clear to auscultation bilaterally Cardio: COMMON NORMALS: regular rate RATE: regular rate GI: COMMON NORMALS: Soft to palpation and non-tender PALPATION: Yes Soft to palpation : COMMON NORMALS: Yes no CVA tenderness BLADDER/KIDNEY EXAM: Yes no CVA tenderness Back/Pelvis: COMMON NORMALS: no CVA tenderness Extremity: RIGHT LOWER EXTREMITY: Yes upper leg (Red erythematous circular area lateral thigh) and Yes lower leg (Red circular erythematous area lateral lower leg) Neuro: SENSORIUM/ORIENTATION: Yes alert Skin: NARRATIVE SKIN EXAM: Redness noted in 2 areas to the right lower leg. Patient reported 3 separate stings. Only 2 are observed. Course Vital Signs: Vital signs: Vital Signs Temperature 99.4 F 10/11/23 18:48 Pulse Rate 78 10/11/23 19:26 Respiratory Rate 20 H 10/11/23 19:22 Blood Pressure 121/77 10/11/23 19:22 Pulse Oximetry 99 10/11/23 19:22 Oxygen Delivery Me thod Room Air 10/11/23 19:18 MDM - Allergic Reaction Medical Decision Making 38-year-old female comes in today for concerns of wasp sting. On exam lungs were clear to auscultation. Patient had 2 areas of redness to the right lower extremity. Minimal swelling is noted. Respirations are even patient has good air inspiration and lungs without auditory wheezing. Patient reports shortness of breath. Vital signs are normal. Differential diagnosis includes not limited to anaphylaxis, allergic reaction, localized reaction insect bite, anxiety. Patient was monitored for 1-1/2 hours in the emergency department with resolution of symptoms. No significant respiratory distress or hives were noted. Patient's will be continued on prednisone for the next 3 days and was given a renewal for her EpiPen. Patient reports understanding of care plan need for follow-up or return to the ER. No radiology studies performed this visit Discharge Plan Discharge Patient Disposition: Home Clinical Impression: Allergic reaction to wasp sting Condition: Stable Prescriptions: New epinephrine 0.3 mg/0.3 mL auto-injector 0.3 mg IM Q10M PRN (Reason: hypersensitivity reaction) Qty: 2 0RF Rx Instructions: for 2 doses prednisone 20 mg tablet 20 mg PO DAILY 3 Days Qty: 3 0RF No Action albuterol sulfate [Ventolin HFA] 90 mcg/actuation HFA aerosol inhaler 2 puff INHALATION Q6H PRN gabapentin 800 mg tablet 800 mg PO TID baclofen 20 mg tablet 20 mg PO BID latanoprost 0.005 % drops 1 drp ophthalmic (eye) DAILY cetirizine [Zyrtec] 10 mg tablet 10 mg PO DAILY Qty: 30 0RF famotidine 40 mg tablet 40 mg PO DAILY Qty: 30 0RF prednisone 20 mg tablet 40 mg PO DAILY 5 Days Qty: 10 0RF buspirone 30 mg tablet 30 mg PO BID Qty: 60 2RF escitalopram oxalate 20 mg tablet See Rx Instructions .ROUTE .COMPLEX Qty: 30 2RF Dose Instruction: TAKE 1 TABLET BY MOUTH DAILY Rx Instructions: TAKE 1 TABLET BY MOUTH DAILY prazosin 2 mg capsule 2 mg PO .HS Qty: 30 2RF trazodone 50 mg tablet 100 mg PO .HS PRN (Reason: insomnia) Qty: 60 2RF hydroxyzine HCl 50 mg tablet 50 mg PO QID PRN (Reason: anxiety/hives) Qty: 120 2RF nicotine 21 mg/24 hr patch 24 hour 1 patch transdermal DAILY Qty: 28 2RF varenicline [Chantix] 1 mg tablet 1 mg PO BID Qty: 56 0RF hydrocodone-acetaminophen 10-325 mg tablet 1 tab PO .five times daily PRN (Reason: pain) 30 Days Qty: 150 0RF Rx Instructions: Refill on or after 06/12/2021, Dr. Gilliam's patient Discharge Orders: Discharge ED (Routine); Ordered 10/11/23 Ordered By: Roberto Hodgson Referrals: Du Harman MD [Primary Care Provider] - Discharge Diet: Usual diet Discharge Activity: Increase activity as tolerated Patient Instructions: Insect Bite or Sting (ED) Activity Restrictions/Additional Instructions: Continue with routine care. Follow-up with primary care in 2 to 3 days for recheck. Use prednisone as directed. Use epinephrine as needed for allergic reaction. Return to ED for new concerns. Coding Level of Care Code ED It Security Manager for Ian Jarrell
[2023-10-11] MEDS: midazolam 1 mg/mL INJ 2 mL IVP (19:10)
[2023-10-11] MEDS: diphenhydrAMINE 50 mg/mL SDV 1mL 25 MG IVP (19:11)
[2023-10-11] MEDS: famotidine 20 mg/2 mL INJ 40 MG IVP (19:12)
[2023-10-11] MEDS: methylPREDNISolone sod succ 125 mg/2 mL INJ 80 MG IVP (19:15)
[2023-10-11 19:18] VITALS: PULSE 75; RESP 18; O2SAT 97
[2023-10-11] MEDS: ketorolac 30 mg/mL INJ 15 MG IVP (19:18)
[2023-10-11] MEDS: ipratropium-albuterol 3 mL Neb INHALATION (19:18)
[2023-10-11 19:22] VITALS: BP 121/77; PULSE 86; RESP 20; O2SAT 99
[2023-10-11 19:26] VITALS: PULSE 78
[2023-10-11 20:00] VITALS: BP 118/75; PULSE 76; RESP 17; O2SAT 97
[2023-10-11 20:37] VITALS: BP 121/78; PULSE 73; RESP 16; O2SAT 96
== END 2023-10-11 20:40 | disposition home or self-care (01) ==
PROVIDERS: Emergency Provider Nurse Practitioner Family; PCP Family Medicine
DX: T63.461A Toxic effect of venom of wasps, accidental (unintentional), initial encounter (principal); F17.210 Nicotine dependence, cigarettes, uncomplicated
CPT/HCPCS: 94640; 96374; 96375; 99284; J1200; J1885; J2250; J2919; J3490

== ENCOUNTER 2023-11-08 12:27 | Emergency (ER) | payer MEDICAID, SELFPAY ==
[2023-11-08 12:57] VITALS: BP 114/70; PULSE 84; RESP 14; TEMP 37.3; O2SAT 98; BMI 22.4
--- NOTE | 2023-11-08 13:35 | ED_ITS ---
HPI - Back Pain/Injury General: Chief Complaint: Back Pain/Injury Stated Complaint: back pain/cant straighten Time Seen by Provider: 11/08/23 13:01 Source: patient Mode of arrival: ambulatory Limitations: no limitations History of Present Illness: Patient is a 38-year-old female presenting to the emergency department complaining of lower back pain worsening over the past 3-1/2 days. Reports history of similar back pain, however states this is much worse. Onset of pain started when patient was outside and clipped a few branches, states the pain began after this and is only worsened. She reports pain with any range of motion, radiation down the left leg. History of sciatica, states this feels different. She has tried her narcotic pain medications, heat and hot baths, baclofen, ibuprofen, and reports no relief at all. She does note that she has a pain doctor, saw nurse practitioner earlier today and was told to follow-up next week with them if her pain was persisting. She has never seen orthopedic spine surgeon and has no history of surgery. She is not reporting any bowel or bladder incontinence, fevers, or other concerning symptoms at this time. MD elicited complaint: back pain Pertinent past history: prior back pain Onset (ago): day(s) Timing: constant Severity: severe Similar Symptoms Previously: Yes Location: lumbar spine Radiation: left leg below the knee Exacerbating factors: movement and supine positioning Relieving factors: none Associated symptoms: Deny abdominal pain, chills, fever(s), nausea or vomiting Related Data Home Medications Medication Instructions Recorded Confirmed albuterol sulfate 90 mcg/actuation 2 puff inhalation Q6H PRN Wheezing 03/22/19 11/08/23 aerosol inhaler (Ventolin HFA) gabapentin 800 mg tablet 800 mg PO TID 06/30/22 11/08/23 latanoprost 0.005 % eye drops 1 drp ophthalmic (eye) DAILY 12/06/22 11/08/23 baclofen 10 mg tablet 10 mg PO BID 11/08/23 11/08/23 Previous Rx's Medication Instructions Recorded hydrocodone 10 mg-acetaminophen 1 tab PO .five times daily PRN 06/10/21 325 mg tablet pain 30 days #150 tabs buspirone 30 mg tablet 30 mg PO BID #60 tabs 09/25/23 escitalopram oxalate 20 mg tablet See Rx Instructions .Route 09/25/23 .COMPLEX #30 tabs hydroxyzine HCl 50 mg tablet 50 mg PO QID PRN anxiety/hives 09/25/23 #120 tabs nicotine 21 mg/24 hr daily 1 patch transdermal DAILY #28 ea 09/25/23 transdermal patch prazosin 2 mg capsule 2 mg PO .HS #30 caps 09/25/23 trazodone 50 mg tablet 100 mg (2 x 50 mg) PO .HS PRN 09/25/23 insomnia #60 tabs varenicline 1 mg tablet (Chantix) 1 mg PO BID #56 tabs 09/25/23 epinephrine 0.3 mg/0.3 mL 0.3 mg (0.3 mL) IM Q10M PRN 10/11/23 injection, auto-injector hypersensitivity reaction #2 ea prednisone 20 mg tablet 60 mg (3 x 20 mg) PO ONCE 5 days 11/08/23 #15 tabs Allergies Allergy/AdvReac Type Severity Reaction Status Date / Time amoxicillin Allergy ALGY-Anaphy Verified 11/08/23 13:01 laxis bupropion [From Wellbutrin] Allergy ADR-Seizure Verified 11/08/23 13:01 clindamycin Allergy ALGY-Anaphy Verified 11/08/23 13:01 laxis latex Allergy ALGY-Rash Verified 11/08/23 13:01 Penicillins Allergy ALGY-Anaphy Verified 11/08/23 13:01 laxis sumatriptan Allergy Unknown Verified 11/08/23 13:01 Review of Systems General: Reports: 10 or more systems reviewed and unremarkable except in HPI and below Const: Denies: fever(s) or chills Card: Denies: chest pain Resp: Denies: dyspnea or productive cough GI: Denies: abdominal pain, nausea, vomiting or diarrhea : Denies: flank pain Musc: Reports: back pain, extremity pain and limited range of motion; Denies: neck pain, extremity swelling, joint pain, joint swelling, joint redness, joint warmth or muscle weakness Skin/Breast: Denies: rash Neuro: Denies: headache(s), numbness in extremities or weakness in extremities PFSH ED PFSH: Medical History Psychiatric care Strain of right knee Smoker unmotivated to quit Cough with exposure to COVID-19 virus Acute URI Acute bacterial bronchitis Iron deficiency anemia Anxiety and depression Chronic migraine w/o aura w/o status migrainosus, not intractable Chronic pain in right shoulder Low back pain radiating to right leg Spondylosis without myelopathy or radiculopathy, lumbosacral region Surgical History S/P arthroscopy of right shoulder toal of 2 surgeries 2010-repaired the labrem and rotator, 2012 debrievment to repair rotator Hx of section 2005, 2009, 2017 S/P tubal ligation S/P total hysterectomy (~10/11/18) TVH OVARIES SPARED. Family History Mother Diabetes Hypertension Grandmother Diabetes Cancer SKIN CANCER Hypertension Maternal grandmother Family/Other Hypertension Maternal uncle Ovarian cancer Cousin Maternal aunt Other Lung disease Denies family history of Colon cancer Breast cancer Uterine cancer Social History Smoking and tobacco/nicotine status: current every day tobacco/nicotine user cigarettes Packs smoked per day: 1 Substance/Drug Use: never Additional social history: - Tobacco use: Current everyday smoker; 1pk daily Alcohol use: Social Drug use: Denies Physical Exam Const: COMMON NORMALS: patient oriented x3, no limitations, healthy appearing, alert and well nourished OTHER: Patient appears uncomfortable in emergency department bed HENMT: COMMON NORMALS: normocephalic and atraumatic HEAD & SCALP: normocephalic and atraumatic Neck/C-Spine: COMMON NORMALS: full ROM, supple and no meningeal signs Resp: COMMON NORMALS: normal respiratory effort, No use of accessory muscles and clear to auscultation bilaterally AUSCULTATION: clear to auscultation bilaterally Cardio: COMMON NORMALS: regular rate and regular rhythm RATE: regular rate RHYTHM: regular rhythm Back/Pelvis: OTHER: Straight leg raise positive on the left. Moderate reproducible tenderness to palpation of the lower thoracic and lumbar spine with no obvious deformity or signs of trauma. Essentially has pain with any range of motion in any plane, though it does appear to be worse with flexion and extension. Deep tendon reflexes are intact. Extremity: COMMON NORMALS: normal to inspection, full ROM, capillary refill normal, no joint enlargement and no clubbing, cyanosis or edema Neuro: COMMON NORMALS: patient oriented x3, moves all extremities, no focal motor deficits and no sensory deficits noted SENSORIUM/ORIENTATION: Yes alert MENINGEAL SIGNS: Yes no meningeal signs Skin: COMMON NORMALS: no rashes or lesions noted GENERAL SKIN EXAM: no rashes or lesions noted Course Vital Signs: Vital signs: Vital Signs Temperature 99.1 F 11/08/23 12:57 Pulse Rate 66 11/08/23 15:01 Respiratory Rate 16 11/08/23 15:01 Blood Pressure 114/69 11/08/23 15:01 Pulse Oximetry 96 11/08/23 15:01 Oxygen Delivery Me thod Room Air 11/08/23 15:01 MDM - Back Pain/Injury Medical Decision Making Patient presented with chronic low back pain, though acutely worsening over the past 3 and half days. No trauma reported or significant mechanism of injury. She is already taking baclofen, Mant[place], and has been taking ibuprofen, states that she has not had any improvement despite this. She does not report any bowel or bladder incontinence, or severe numbness/weakness. She did report left-sided sciatica. She did not report relief here in the emergency department after receiving Norflex, Toradol, and Decadron. She had an MRI back in 2021 that did not show any significant pathology, lumbar spine CT was ordered today mostly at patient's request, which again did not show any severe findings or change from previous imaging. Due to the chronicity, will refer to Ortho/spine for further evaluation or potential MRI. Also will start her on steroids and sh e is encouraged to continue taking the medication she has at home. Reasons to return thoroughly discussed. Labs Radiology Impressions Lumbar Spine CT 11/08/23 14:37 IMPRESSION: 1. No high-grade central or foraminal stenosis. 2. L4-5: Mild disc bulging with a shallow central disc protrusion and mild subarticular recess encroachment. 3. Minimal disc encroachment upon the S1 nerve roots. 4. No fracture. All radiology interpretation(s) finalized by discharge Discharge Plan Discharge Patient Disposition: Home Clinical Impression: Low back pain Qualifiers: Chronicity: chronic Back pain laterality: bilateral Sciatica presence: with sciatica Sciatica laterality: sciatica of left side Qualified Code(s): M54.42 - Lumbago with sciatica, left side Condition: Stable Prescriptions: New prednisone 20 mg tablet 60 mg PO ONCE 5 Days Qty: 15 0RF No Action albuterol sulfate [Ventolin HFA] 90 mcg/actuation HFA aerosol inhaler 2 puff INHALATION Q6H PRN (Reason: Wheezing) gabapentin 800 mg tablet 800 mg PO TID latanoprost 0.005 % drops 1 drp ophthalmic (eye) DAILY buspirone 30 mg tablet 30 mg PO BID Qty: 60 2RF escitalopram oxalate 20 mg tablet See Rx Instructions .ROUTE .COMPLEX Qty: 30 2RF Dose Instruction: TAKE 1 TABLET BY MOUTH DAILY Rx Instructions: TAKE 1 TABLET BY MOUTH DAILY prazosin 2 mg capsule 2 mg PO .HS Qty: 30 2RF trazodone 50 mg tablet 100 mg PO .HS PRN (Reason: insomnia) Qty: 60 2RF hydroxyzine HCl 50 mg tablet 50 mg PO QID PRN (Reason: anxiety/hives) Qty: 120 2RF nicotine 21 mg/24 hr patch 24 hour 1 patch transdermal DAILY Qty: 28 2RF varenicline [Chantix] 1 mg tablet 1 mg PO BID Qty: 56 0RF hydrocodone-acetaminophen 10-325 mg tablet 1 tab PO .five times daily PRN (Reason: pain) 30 Days Qty: 150 0RF epinephrine 0.3 mg/0.3 mL auto-injector 0.3 mg IM Q10M PRN (Reason: hypersensitivity reaction) Qty: 2 0RF Rx Instructions: for 2 doses baclofen 10 mg tablet 10 mg PO BID Discharge Orders: Discharge ED (Routine); Ordered 11/08/23 Ordered By: Huey Altamirano Referrals: Du Harman MD [Primary Care Provider] - Discharge Diet: Usual diet Discharge Activity: Increase activity as tolerated Patient Instructions: Opioid Safety, Pain Management Activity Restrictions/Additional Instructions: Continue taking your baclofen and Manteca at home. Take steroids as prescribed. Follow-up with Ortho/spine as discussed. Continue utilizing heat and rest. With any loss of bowel or bladder function, severe worsening of pain, or neurological deficits, return for reevaluation. Coding Level of Care Code ED Vp Of Marketing for Ian Jarrell
[2023-11-08] MEDS: orphenadrine 30 mg/mL Inj 2 mL 60 MG IM (14:04)
[2023-11-08] MEDS: ketorolac 60 mg/2 mL INJ IM (14:04)
[2023-11-08] MEDS: dexamethasone 10 mg/mL INJ IM (14:04)
--- NOTE | 2023-11-08 14:37 | CT_ITS ---
WS: [id number] CT LUMBAR SPINE, noncontrast. HISTORY: severe low back pain TECHNIQUE: Contiguous 2.0 mm axial imaging are performed. Sagittal and coronal reformats are submitte d and reviewed. [facility] CT [facility] use at least one of these dose optimization techni ques: automated exposure control; mA and/or kV adjustment per patient size (includes targeted exams w here dose is matched to clinical indication); or iterative reconstruction. IV contrast: None DLP: 492.88 mGy.cm COMPARISON: MRI lumbar spine 01/21/2022 Straightening of the normal lumbar lordosis. Partial lumbarization of S1. No fractures or destructive bone lesions. Normal facet joint alignment. L1-2: Normal. L2-3: Normal. L3-4: Diffuse disc bulging. No stenosis. L4-5: Mild annular disc disease with a very shallow central disc protrusion. 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 Very mild bilateral subarticular recess stenosis. L5-S1: Mild disc bulging with mild encroachment upon the S1 nerve roots. No significant stenosis. Visualized retroperitoneum is normal. CT/CT lumbar spine wo con* [id number] IMPRESSION: 1. No high-grade central or foraminal stenosis. 2. L4-5: Mild disc bulging with a shallow central disc protrusion and mild sub articular recess encroachment. 3. Minimal disc encroachment upon the S1 nerve roots. 4. No fracture.
[2023-11-08 15:01] VITALS: BP 114/69; PULSE 66; RESP 16; O2SAT 96
[2023-11-08 15:40] VITALS: BP 109/62; PULSE 78; RESP 16; O2SAT 99
--- NOTE | 2023-11-09 08:02 | DCPLANNER ---
messaged ortho for er f/u
== END 2023-11-08 15:43 | disposition home or self-care (01) ==
PROVIDERS: Emergency Provider Physician Assistant; PCP Family Medicine
DX: M54.42 Lumbago with sciatica, left side (principal); F17.210 Nicotine dependence, cigarettes, uncomplicated
CPT/HCPCS: 72131; 96372; 99284; J1100; J1885; J2360

== ENCOUNTER 2023-11-12 13:46 | Emergency (ER) | payer MEDICAID, SELFPAY ==
[2023-11-12 13:54] VITALS: BP 124/76; PULSE 93; RESP 18; TEMP 36.8; O2SAT 97; BMI 22.7
--- NOTE | 2023-11-12 14:31 | ED_ITS ---
HPI - Back Pain/Injury General: Chief Complaint: Back Pain/Injury Stated Complaint: back locked up Time Seen by Provider: 11/12/23 14:28 History of Present Illness: 38-year-old female comes in today with c omplaints of exacerbation of back pain for the last 5 days. Patient was seen 3 days ago and was prescribed some prednisone as she reports she has not got filled or has not been taking. Patient does take routine chronic pain medications for her back. Patient sees Dr. Larry for this. Patient reports no fever, no loss of bowel or bladder control. Patient does appear in moderate to severe pain. Patient is guarded with movement. Related Data Home Medications Medication Instructions Recorded Confirmed albuterol sulfate 90 mcg/actuation 2 puff inhalation Q6H PRN Wheezing 03/22/19 11/08/23 aerosol inhaler (Ventolin HFA) gabapentin 800 mg tablet 800 mg PO TID 06/30/22 11/08/23 latanoprost 0.005 % eye drops 1 drp ophthalmic (eye) DAILY 12/06/22 11/08/23 baclofen 10 mg tablet 10 mg PO BID 11/08/23 11/08/23 Previous Rx's Medication Instructions Recorded hydrocodone 10 mg-acetaminophen 1 tab PO .five times daily PRN 06/10/21 325 mg tablet pain 30 days #150 tabs buspirone 30 mg tablet 30 mg PO BID #60 tabs 09/25/23 escitalopram oxalate 20 mg tablet See Rx Instructions .Route 09/25/23 .COMPLEX #30 tabs hydroxyzine HCl 50 mg tablet 50 mg PO QID PRN anxiety/hives 09/25/23 #120 tabs nicotine 21 mg/24 hr daily 1 patch transdermal DAILY #28 ea 09/25/23 transdermal patch prazosin 2 mg capsule 2 mg PO .HS #30 caps 09/25/23 trazodone 50 mg tablet 100 mg (2 x 50 mg) PO .HS PRN 09/25/23 insomnia #60 tabs varenicline 1 mg tablet (Chantix) 1 mg PO BID #56 tabs 09/25/23 epinephrine 0.3 mg/0.3 mL 0.3 mg (0.3 mL) IM Q10M PRN 10/11/23 injection, auto-injector hypersensitivity reaction #2 ea prednisone 20 mg tablet 60 mg (3 x 20 mg) PO ONCE 5 days 11/08/23 #15 tabs Allergies Allergy/AdvReac Type Severity Reaction Status Date / Time amoxicillin Allergy ALGY-Anaphy Verified 11/12/23 13:58 laxis bupropion [From Wellbutrin] Allergy ADR-Seizure Verified 11/12/23 13:58 clindamycin Allergy ALGY-Anaphy Verified 11/12/23 13:58 laxis latex Allergy ALGY-Rash Verified 11/12/23 13:58 Penicillins Allergy ALGY-Anaphy Verified 11/12/23 13:58 laxis sumatriptan Allergy Unknown Verified 11/12/23 13:58 Review of Systems General: Reports: 10 or more systems reviewed and unremarkable except in HPI and below Musc: Reports: back pain PFSH ED PFSH: Medical History Psychiatric care Strain of right knee Smoker unmotivated to quit Cough with exposure to COVID-19 virus Acute URI Acute bacterial bronchitis Iron deficiency anemia Anxiety and depression Chronic migraine w/o aura w/o status migrainosus, not intractable Chronic pain in right shoulder Low back pain radiating to right leg Spondylosis without myelopathy or radiculopathy, lumbosacral region Surgical History S/P arthroscopy of right shoulder toal of 2 surgeries 2010-repaired the labrem and rotator, 2013 debrievment to repair rotator Hx of section 2004, 2009, 2017 S/P tubal ligation S/P total hysterectomy (~10/11/18) TVH OVARIES SPARED. Family History Mother Diabetes Hypertension Grandmother Diabetes Cancer SKIN CANCER Hypertension Maternal grandmother Family/Other Hypertension Maternal uncle Ovarian cancer Cousin Maternal aunt Other Lung disease Denies family history of Colon cancer Breast cancer Uterine cancer Social History Smoking and tobacco/nicotine status: current every day tobacco/nicotine user cigarettes Packs smoked per day: 1 Substance/Drug Use: never Additional social history: - Tobacco use: Current everyday smoker; 1pk daily Alcohol use: Social Drug use: Denies Physical Exam Const: COMMON NORMALS: alert Neck/C-Spine: COMMON NORMALS: full ROM Resp: COMMON NORMALS: normal respiratory effort Cardio: COMMON NORMALS: regular rate RATE: regular rate Back/Pelvis: OTHER: Decreased range of motion of the back. Extremity: COMMON NORMALS: normal to inspection Neuro: SENSORIUM/ORIENTATION: Yes alert Skin: COMMON NORMALS: turgor normal GENERAL SKIN EXAM: turgor normal Course Vital Signs: Vital signs: Vital Signs Temperature 98.3 F 11/12/23 13:54 Pulse Rate 93 11/12/23 13:54 Respiratory Rate 18 11/12/23 13:54 Blood Pressure 124/76 11/12/23 13:54 Pulse Oximetry 97 11/12/23 13:54 Oxygen Delivery Me thod Room Air 11/12/23 13:54 MDM - Back Pain/Injury Medical Decision Making 38-year-old female comes in today with complaints of increased back pain with no improvement. Patient appears nontoxic. Patient appears in no acute distress. Patient does endorse that she has not picked up prescription of prednisone but has taken some from a prescription she had at home. Patient appears nontoxic. Patient appears in moderate to severe pain. Patient is very guarded with movement due to pain. Differential diagnosis includes but not limited to malingering, intervertebral disc disease, facet arthritis, muscle strain. I reviewed CT scan from 07 November which showed no significant intervertebral disc disease or significant foraminal stenosis. Exam indicates no signs of cauda equina syndrome or infectious origin for pain. Patient was given 1 mg of hydromorphone and 30 mg ketorolac and discharged home with recommendation for follow-up with primary care or pain veterinarian laboratory animal care. Patient was urged to take the prednisone prescription that was supplied for her as directed. No radiology studies performed this visit Discharge Plan Discharge Patient Disposition: Home Clinical Impression: Low back pain Qualifiers: Chronicity: chronic Back pain laterality: bilateral Sciatica presence: with sciatica Sciatica laterality: sciatica of left side Qualified Code(s): M54.42 - Lumbago with sciatica, left side Condition: Stable Prescriptions: No Action albuterol sulfate [Ventolin HFA] 90 mcg/actuation HFA aerosol inhaler 2 puff INHALATION Q6H PRN (Reason: Wheezing) gabapentin 800 mg tablet 800 mg PO TID latanoprost 0.005 % drops 1 drp ophthalmic (eye) DAILY buspirone 30 mg tablet 30 mg PO BID Qty: 60 2RF escitalopram oxalate 20 mg tablet See Rx Instructions .ROUTE .COMPLEX Qty: 30 2RF Dose Instruction: TAKE 1 TABLET BY MOUTH DAILY Rx Instructions: TAKE 1 TABLET BY MOUTH DAILY prazosin 2 mg capsule 2 mg PO .HS Qty: 30 2RF trazodone 50 mg tablet 100 mg PO .HS PRN (Reason: insomnia) Qty: 60 2RF hydroxyzine HCl 50 mg tablet 50 mg PO QID PRN (Reason: anxiety/hives) Qty: 120 2RF nicotine 21 mg/24 hr patch 24 hour 1 patch transdermal DAILY Qty: 28 2RF varenicline [Chantix] 1 mg tablet 1 mg PO BID Qty: 56 0RF hydrocodone-acetaminophen 10-325 mg tablet 1 tab PO .five times daily PRN (Reason: pain) 30 Days Qty: 150 0RF epinephrine 0.3 mg/0.3 mL auto-injector 0.3 mg IM Q10M PRN (Reason: hypersensitivity reaction) Qty: 2 0RF Rx Instructions: for 2 doses baclofen 10 mg tablet 10 mg PO BID prednisone 20 mg tablet 60 mg PO ONCE 5 Days Qty: 15 0RF Discharge Orders: Discharge ED (Routine); Ordered 11/12/23 Ordered By: Roberto Hodgson Referrals: uD Harman MD [Primary Care Provider] - Discharge Diet: Usual diet Discharge Activity: Increase activity as tolerated Patient Instructions: Chronic Back Pain (DC) Activity Restrictions/Additional Instructions: Continue steroids burst as prescribed. Continue routine medications as directed by primary care. Follow-up with pain veterinarian laboratory animal care for further instructions. Follow-up with primary care otherwise as needed. Coding Level of Care Code ED Automatic Equipment Technician for Ian Jarrell
[2023-11-12] MEDS: ketorolac 30 mg/mL INJ IM (14:54)
[2023-11-12] MEDS: HYDROmorphone 1 mg/mL INJ 1 mL IM (14:54)
[2023-11-12 15:01] VITALS: BP 132/81; PULSE 99; RESP 18; O2SAT 96
== END 2023-11-12 14:59 | disposition home or self-care (01) ==
PROVIDERS: Emergency Provider Nurse Practitioner Family; PCP Family Medicine
DX: G89.29 Other chronic pain (principal); M54.42 Lumbago with sciatica, left side; F17.210 Nicotine dependence, cigarettes, uncomplicated
CPT/HCPCS: 96372; 99284; J1170; J1885

== ENCOUNTER → 2023-11-14 13:09 | Outpatient (BNVA) | payer MEDICAID, SELFPAY | PROVIDERS: PCP Family Medicine; Visit Provider Orthopaedic Surgery | DX: M54.42 Lumbago with sciatica, left side (principal); G89.29 Other chronic pain | CPT/HCPCS: 72110 ==

== ENCOUNTER 2023-11-24 10:12 | Outpatient (CLI) | payer MEDICAID, SELFPAY ==
--- NOTE | 2023-11-24 10:45 | US_ITS ---
WS: [id number] RIGHT UPPER QUADRANT ULTRASOUND HISTORY: suprapubic mass COMPARISON: None available. Liver: 17.2 cm in length. Normal size liver and echogenicity. No bile duct dilatation or mass. Portal Vein: Normal hepatopetal flow with monophasic waveform. Gallbladder: Normally distended gallbladder with no stones or wall thickening. CBD: 0.2 cm Pancreas: Normal size and echogenicity. Right kidney: 11.2 cm in length. Normal size and echogenicity. No hydronephrosis or mass. Aorta and IVC: Unremarkable abdominal aorta and IVC. No ascites. Ultrasound is performed along the midline umbilical scar area in the area of pain. No ultrasound abno rmality is noted in the area of pain. US/US abdomen limited [id number] IMPRESSION: Normal right upper quadrant ultrasound.
== END 2023-11-24 10:13 | disposition home or self-care (01) ==
LOC: RAD 10:14
PROVIDERS: PCP Family Medicine; Visit Provider Family Medicine
DX: R10.9 Unspecified abdominal pain (principal)
CPT/HCPCS: 76705

== ENCOUNTER 2024-02-14 18:41 | Emergency (ER) | payer MEDICAID, SELFPAY ==
[2024-02-14 19:02] VITALS: BP 125/79; PULSE 76; RESP 14; TEMP 36.6; O2SAT 76
--- NOTE | 2024-02-14 19:33 | XRR_ITS ---
PROCEDURE INFORMATION: Exam: XR Left Knee Exam date and time: 02/14/2024 8:32 PM Age: 38 years old Clinical indication: Pain; Knee; Left; Additional info: Knee pain TECHNIQUE: Imaging protocol: Radiologic exam of the left knee. Views: 3 views. COMPARISON: CR XR knee LT 3V* [id number] 09/20/2018 2:54 PM FINDINGS: Bones/joints: There is there is small/physiologic knee joint effusion. The joint spaces are maintained. There is no intra-articular body. No acute fracture or dislocation. No chondrocalcinosis. Soft tissues: There is no foreign body. XR/XR knee LT 3V* [id number] IMPRESSION: No acute bony abnormality.
[2024-02-14] MEDS: dexamethasone 10 mg/mL INJ IM (20:43)
[2024-02-14 20:44] LABS: Erythrocyte Sedimentation Rate < 1 mm/hr (0-15)
[2024-02-14 20:46] LABS: Basophils # 0.1 10^3/uL (0.0-0.1); Basophils % 0.6 %; Eosinophils # 0.3 10^3/uL (0.0-0.8); Hematocrit 36.5 % (36-47); Lymphocytes # 4.4 10^3/uL (0.8-4.8); Lymphocytes % 43.9 %; Mean Corpuscular HGB Conc 33.2 g/dL (30-55); Mean Corpuscular Volume 93.6 fl (85-98); Mean Platelet Volume 8.6 fL (7.4-10.4); Monocytes # 0.5 10^3/uL (0.2-0.9); Monocytes % 5.1 %; Neutrophils # 4.76 10^3/uL (1.8-7.7); Neutrophils % 47.1 %; Nucleated Red Blood Cells % 0 %; Platelet Count 301 10^3/cmm (157-399); Red Cell Distribution Width 12.6 % (12.1-15.1); White Blood Count 10.11 10^3/uL (3.29-11.43)
--- NOTE | 2024-02-14 21:09 | ED_ITS ---
HPI - Extremity Problem 2 General: Chief complaint: Extremity Injury, Lower Stated complaint: left knee injury Time Seen by Provider: 02/14/24 20:09 Source: patient Mode of arrival: ambulatory Limitations: no limitations History of Present Illness: Patient is a 38-year-old female presents the emergency department complaining of left knee pain for the past 3 days. States she recently had upper respiratory infection, is concerned about infected knee. Also states that her significant other had a gout flareup 1 time. She denies any personal history of gout. States she is having pain with flexion and extension of the left knee. Denies any fevers, nausea/vomiting, or other systemic signs of illness. No redness or bruising, does state that it has been swollen. No trauma or injury history reported. Afebrile at this time, rest of her vitals normal. MD Complaint: joint pain Onset (ago): day(s) (3) Pain Consistency: constant Location: left and knee Radiation: none Exacerbating factors: range of motion and weight bearing Associated symptoms: Deny chest pain, fever(s) or rash Related Data Home Medications Medication Instructions Recorded Confirmed albuterol sulfate 90 mcg/actuation 2 puff inhalation Q6H PRN Wheezing 03/22/19 02/06/24 aerosol inhaler (Ventolin HFA) latanoprost 0.005 % eye drops 1 drp ophthalmic (eye) DAILY 12/06/22 02/06/24 Previous Rx's Medication Instructions Recorded epinephrine 0.3 mg/0.3 mL 0.3 mg (0.3 mL) IM Q10M PRN 10/11/23 injection, auto-injector hypersensitivity reaction #2 ea buspirone 30 mg tablet 30 mg PO BID #60 tabs 11/20/23 escitalopram oxalate 20 mg tablet See Rx Instructions .Route 11/20/23 .COMPLEX #30 tabs hydroxyzine HCl 50 mg tablet 50 mg PO QID PRN anxiety/hives 11/20/23 #120 tabs prazosin 2 mg capsule 2 mg PO .HS #30 caps 11/20/23 propranolol 20 mg tablet 20 mg PO BID PRN anxiety #60 tabs 11/20/23 trazodone 50 mg tablet 100 mg (2 x 50 mg) PO .HS PRN 11/20/23 insomnia #60 tabs baclofen 10 mg tablet 10 mg PO BID #60 tabs 01/02/24 gabapentin 800 mg tablet 800 mg PO TID #90 tabs 01/02/24 hydrocodone 10 mg-acetaminophen 1 tab PO .five times daily PRN 02/02/24 325 mg tablet pain 30 days #150 tabs fywvpxoxlbwwqfj-edsqxcinkvqyjrz-IH 5 ml PO Q6H PRN cold symptoms #118 02/06/24 2 mg-30 mg-10 mg/5 mL oral syrup mL (Bromfed DM) levofloxacin 750 mg tablet 750 mg PO DAILY 7 days #7 tabs 02/06/24 prednisone 10 mg tablet 30 mg (3 x 10 mg) PO DAILY 5 days 02/06/24 #15 tabs Allergies Allergy/AdvReac Type Severity Reaction Status Date / Time amoxicillin Allergy ALGY-Anaphy Verified 02/14/24 19:07 laxis bupropion [From Wellbutrin] Allergy ADR-Seizure Verified 02/14/24 19:07 clindamycin Allergy ALGY-Anaphy Verified 02/14/24 19:07 laxis latex Allergy ALGY-Rash Verified 02/14/24 19:07 Penicillins Allergy ALGY-Anaphy Verified 02/14/24 19:07 laxis sumatriptan Allergy Unknown Verified 02/14/24 19:07 Review of Systems 2 General: Reports: 10 or more systems reviewed and unremarkable except in HPI and below Const: Denies: fever(s) or chills Card: Denies: chest pain Resp: Denies: dyspnea or productive cough GI: Denies: abdominal pain, nausea, vomiting or diarrhea : Denies: flank pain Musc: Reports: joint pain (Left knee), joint swelling (Left knee) and limited range of motion; Denies: neck pain, back pain, extremity pain, extremity swelling, joint redness, joint warmth or muscle weakness Skin/Breast: Denies: rash Neuro: Denies: headache(s), numbness in extremities or weakness in extremities PFSH ED 2 PFSH: Medical History Psychiatric care Strain of right knee Smoker unmotivated to quit Cough with exposure to COVID-19 virus Acute URI Acute bacterial bronchitis Iron deficiency anemia Anxiety and depression Chronic migraine w/o aura w/o status migrainosus, not intractable Chronic pain in right shoulder Low back pain radiating to right leg Spondylosis without myelopathy or radiculopathy, lumbosacral region Surgical History S/P arthroscopy of right shoulder toal of 2 surgeries 2010-repaired the labrem and rotator, 2013 debrievment to repair rotator Hx of section 2005, 2009, 2017 S/P tubal ligation S/P total hysterectomy (~10/11/18) TVH OVARIES SPARED. Family History Mother Diabetes Hypertension Grandmother Diabetes Cancer SKIN CANCER Hypertension Maternal grandmother Family/Other Hypertension Maternal uncle Ovarian cancer Cousin Maternal aunt Other Lung disease Denies family history of Colon cancer Breast cancer Uterine cancer Social History Smoking and tobacco/nicotine status: never used tobacco/nicotine Substance/Drug Use: never Additional social history: - Tobacco use: Current everyday smoker; 1pk daily Alcohol use: Social Drug use: Denies Physical Exam 2 Const: COMMON NORMALS: no acute distress, patient oriented x3, no limitations, healthy appearing, alert and well nourished HENMT: COMMON NORMALS: normocephalic and atraumatic HEAD & SCALP: n ormocephalic and atraumatic Neck/C-Spine: COMMON NORMALS: full ROM, supple and no meningeal signs Resp: COMMON NORMALS: normal respiratory effort, No use of accessory muscles and clear to auscultation bilaterally AUSCULTATION: clear to auscultation bilaterally Cardio: COMMON NORMALS: regular rate and regular rhythm RATE: regular rate RHYTHM: regular rhythm Extremity: COMMON NORMALS: full ROM, capillary refill normal, no joint enlargement and no clubbing, cyanosis or edema NARRATIVE EXTREMITY EXAM: Minimal swelling to the left knee noted compared to the right. No warmth or redness. Diffuse tenderness to palpation, no point tenderness at this time. Endorsing pain with active range of motion at the left knee, no difference with flexion or extension. No calf tenderness. No palpable cord to the popliteal fossa. Neuro: COMMON NORMALS: patient oriented x3, moves all extremities, no focal motor deficits and no sensory deficits noted SENSORIUM/ORIENTATION: Yes alert MENINGEAL SIGNS: Yes no meningeal signs Skin: COMMON NORMALS: no rashes or lesions noted GENERAL SKIN EXAM: no rashes or lesions noted Course 2 Vital Signs: Vital signs: Vital Signs Temperature 98 F 02/14/24 19:02 Pulse Rate 76 02/14/24 19:02 Respiratory Rate 14 02/14/24 19:02 Blood Pressure 125/79 02/14/24 19:02 Pulse Oximetry 76 L 02/14/24 19:02 MDM - Extremity (Nontraumatic) Medical Decision Making Patient presented with 3 days of left knee pain, overall exam unremarkable. Did not appear to be an infected joint, there is no redness or heat. Her labs are all negative. X-ray was negative. No injury to report, overall unknown what is causing her pain however will refer her to orthopedics for any further evaluation, also encouraged her to follow-up with primary care. This could be a functional pain/instability, told her to return with any fevers, redness, heat, or other signs of infection. She agrees with plan at this time. Lab Data 02/14/24 20:42 Radiology Impressions Knee X-Ray 02/14/24 19:33 IMPRESSION: No acute bony abnormality. Laboratory Results WBC 10.11 10^3/uL (3.29-11.43) 02/14/24 20:42 RBC 3.90 10^6/uL (3.85-5.65) 02/14/24 20:42 Hgb 12.10 g/dL (11.27-16.99) 02/14/24 20:42 Hct 36.5 % (36-47) 02/14/24 20:42 MCV 93.6 fl (85-98) 02/14/24 20:42 MCH 31.0 pg (27-33) 02/14/24 20:42 MCHC 33.2 g/dL (30-55) 02/14/24 20:42 RDW 12.6 % (12.1-15.1) 02/14/24 20:42 Plt Count 301 10^3/cmm (157-399) 02/14/24 20:42 MPV 8.6 fL (7.4-10.4) 02/14/24 20:42 Neut % (Auto) 47.1 % 02/14/24 20:42 Lymph % (Auto) 43.9 % 02/14/24 20:42 Kendall % (Auto) 5.1 % 02/14/24 20:42 Eos % (Auto) 3.0 % 02/14/24 20:42 Baso % (Auto) 0.6 % 02/14/24 20:42 Neut # (Auto) 4.76 10^3/uL (1.8-7.7) 02/14/24 20:42 Lymph # (Auto) 4.4 10^3/uL (0.8-4.8) 02/14/24 20:42 Kendall # (Auto) 0.5 10^3/uL (0.2-0.9) 02/14/24 20:42 Eos # (Auto) 0.3 10^3/uL (0.0-0.8) 02/14/24 20:42 Baso # (Auto) 0.1 10^3/uL (0.0-0.1) 02/14/24 20:42 Nucleated RBC % (auto) 0 % 02/14/24 20:42 Nucleated RBCs # 0.0 /100WBC 02/14/24 20:42 ESR < 1 mm/hr (0-15) 02/14/24 20:42 C-Reactive Protein 3.0 mg/L (0.0-4.9) 02/14/24 20:42 All radiology interpretation(s) finalized by discharge Discharge Plan Discharge Patient Disposition: Home Clinical Impression: Acute pain of left knee Condition: Stable Prescriptions: No Action albuterol sulfate [Ventolin HFA] 90 mcg/actuation HFA aerosol inhaler 2 puff INHALATION Q6H PRN (Reason: Wheezing) buspirone 30 mg tablet 30 mg PO BID Qty: 60 2RF escitalopram oxalate 20 mg tablet See Rx Instructions .ROUTE .COMPLEX Qty: 30 2RF Dose Instruction: TAKE 1 TABLET BY MOUTH DAILY Rx Instructions: TAKE 1 TABLET BY MOUTH DAILY prazosin 2 mg capsule 2 mg PO .HS Qty: 30 2RF trazodone 50 mg tablet 100 mg PO .HS PRN (Reason: insomnia) Qty: 60 2RF hydroxyzine HCl 50 mg tablet 50 mg PO QID PRN (Reason: anxiety/hives) Qty: 120 2RF propranolol 20 mg tablet 20 mg PO BID PRN (Reason: anxiety) Qty: 60 2RF gabapentin 800 mg tablet 800 mg PO TID Qty: 90 2RF baclofen 10 mg tablet 10 mg PO BID Qty: 60 2RF prednisone 10 mg tablet 30 mg PO DAILY 5 Days Qty: 15 0RF Rx Instructions: start this medicine tomorrow, Monday. levofloxacin 750 mg tablet 750 mg PO DAILY 7 Days Qty: 7 0RF xyomnjtxtnlqmui-keldjlgph-GD [Bromfed DM] 2-30-10 mg/5 mL syrup 5 ml PO Q6H PRN (Reason: cold symptoms) Qty: 118 0RF latanoprost 0.005 % drops 1 drp ophthalmic (eye) DAILY hydrocodone-acetaminophen 10-325 mg tablet 1 tab PO .five times daily PRN (Reason: pain) 30 Days Qty: 150 0RF epinephrine 0.3 mg/0.3 mL auto-injector 0.3 mg IM Q10M PRN (Reason: hypersensitivity reaction) Qty: 2 0RF Rx Instructions: for 2 doses Discharge Orders: Discharge ED (Routine); Ordered 02/14/24 Ordered By: Huey Altamirano Referrals: Du Harman MD [Primary Care Provider] - Patient Instructions: Knee Pain (ED) Activity Restrictions/Additional Instructions: Ibuprofen and Tylenol for pain. Rest, ice, compression, and elevation. Follow- up with orthopedics. Return with any new or worsening. Coding Level of Care Code ED [employer] for [employer]
[2024-02-14 21:40] VITALS: BP 114/72; PULSE 80; O2SAT 97
--- NOTE | 2024-02-15 07:40 | DCPLANNER ---
messaged ortho for er f/u
== END 2024-02-14 21:41 | disposition home or self-care (01) ==
PROVIDERS: Emergency Provider Physician Assistant; PCP Family Medicine
DX: M25.562 Pain in left knee (principal)
CPT/HCPCS: 36415; 73562; 85025; 85651; 86140; 96372; 99284; J1100

== ENCOUNTER → 2024-02-28 10:07 | Outpatient (BNVA) | payer MEDICAID, SELFPAY | PROVIDERS: PCP Family Medicine; Visit Provider Nurse Practitioner | DX: S83.207A Unspecified tear of unspecified meniscus, current injury, left knee, initial encounter; M25.362 Other instability, left knee; X58.XXXA Exposure to other specified factors, initial encounter | CPT/HCPCS: 73560; 73565 ==

== ENCOUNTER 2024-03-11 09:14 | Outpatient (CLI) | payer MEDICAID, SELFPAY ==
--- NOTE | 2024-03-11 09:30 | MR_ITS ---
WS: [id number] MRI LEFT KNEE NONCONTRAST TECHNIQUE: Axial PD, coronal PD fat sat, coronal PD, sagittal PD, and sagittal PD fat-sat images obta ined. CLINICAL INFORMATION: left knee pain and instability FINDINGS: Distal quadriceps and patella tendons are intact. Hypertrophic patella. Small suprapatellar effusion. Moderate chondromalacia patella advanced for patient this age. Medial and lateral patellar retinacul um appear intact. ACL and PCL appear intact. Medial and lateral collateral ligaments appear intact. Peripheral extrusion of the lateral meniscus. Medial meniscus appears intact. Normal bone marrow signal in the femoral condyles and tibial plateau. Normal popliteus. MR/MR knee LT wo con* [id number] IMPRESSION: 1. ACL and PCL appear intact. 2. Small suprapatellar effusion. 3. Moderate chondromalacia patella somewhat advanced for patient this age. Med ial and lateral patellar retinaculum appear intact. Somewhat shallow trochlear groove. Recommend correlation for patellar instability. 4. Mild chronic thinning of the medial and lateral meniscus. No acute appearin g meniscal tears. Mild peripheral extrusion of the lateral meniscus. 5. No other acute findings. Outbridge grading: grade III: partial-thickness cartilage loss with focal ulcer ation
== END 2024-03-11 09:15 | disposition home or self-care (01) ==
PROVIDERS: PCP Family Medicine; Visit Provider Nurse Practitioner
DX: M25.562 Pain in left knee (principal); S83.207A Unspecified tear of unspecified meniscus, current injury, left knee, initial encounter; M25.362 Other instability, left knee; M25.462 Effusion, left knee; M22.42 Chondromalacia patellae, left knee; R93.6 Abnormal findings on diagnostic imaging of limbs
CPT/HCPCS: 73721

== ENCOUNTER → 2024-03-13 16:33 | Outpatient (BNVA) | payer MEDICAID, SELFPAY | PROVIDERS: PCP Family Medicine; Visit Provider Nurse Practitioner | DX: M25.362 Other instability, left knee (principal); M22.42 Chondromalacia patellae, left knee | CPT/HCPCS: 36415; 80053; 81001; 85025 ==

== ENCOUNTER 2024-04-18 10:32 | Day surgery (SDC) | payer MEDICAID, SELFPAY ==
[2024-04-18] VITALS (20 sets, daily range): BP systolic 105–128; BP diastolic 52–79; PULSE 72–91; RESP 14–19; TEMP 36.2–36.3; O2SAT 95–98; BMI 22.6
[2024-04-18] MEDS: sodium chloride 0.9% 1,000 ML 30 ML IV (11:02)
[2024-04-18] MEDS: acetaminophen 1,000 MG/100 ML PIGGYBACK 400 MG IV (11:04)
[2024-04-18] MEDS: CELEcoxib 200 mg Capsule 400 MG PO (11:06)
[2024-04-18] MEDS: gabapentin 300 mg Capsule PO (11:06)
[2024-04-18] MEDS: VANCOMYCIN ADD-Vantage 1,000 MG in 0.9% NaCl ADD-Vantage 250 ML 250 MG IV (11:07)
--- NOTE | 2024-04-18 11:17 | ANES.PREANE2 ---
Pre-Anesthetic Assessment Height/Weight: Height 1.68 m Weight 63.503 kg Temp Pulse Resp BP Pulse Ox O2 Del Method 97.4 F L 75 18 128/74 96 Room Air 04/18/24 10:45 04/18/24 10:45 04/18/24 10:45 04/18/24 10:45 04/18/24 10:45 04/18/24 10:46 Operation Date: 04/18/24 11:45 Proposed Procedures p Knee Arthroscopy Knee Arthroscopy w/ Debridement(Left) - Angelica Antoine MD s Chondroplasty Of patella(Left) - Angelica Antoine MD Familial anesthetic complications: None Was Beta Carlos taken within 24 hours: N/A Was Clonidine taken within 24 hours: N/A Last intake: Intake Last Liquid Date 04/17/24 Last Liquid Time 22:00 Last Solid Date 04/17/24 Last Solid Time 18:00 Social Tobacco and No alcohol Exam alert, oriented x 3, clear to auscultation bilaterally and regular rate & rhythm Airway Mallampati: Class II Dentition: false Musc/skel Lower Back Pain and Osteoarthritis/DJD Anesthetic Plan ASA status: 2 Anesthesia: General Risk of > 500 ml blood loss (7ml/kg in children): No Medications/Allergies Home Medications ?Medication ?Instructions ?Recorded ?Confirmed ?Last Taken ?Type albuterol sulfate 90 mcg/actuation 2 puff inhalation Q6H PRN Wheezing 03/22/19 04/17/24 04/14/24 History aerosol inhaler (Ventolin HFA) latanoprost 0.005 % eye drops 1 drp ophthalmic (eye) DAILY 12/06/22 04/17/24 04/15/24 History epinephrine 0.3 mg/0.3 mL 0.3 mg (0.3 mL) IM Q10M PRN 10/11/23 04/17/24 Unknown Rx injection, auto-injector hypersensitivity reaction #2 ea buspirone 30 mg tablet 30 mg PO BID #60 tabs 11/20/23 04/17/24 04/16/24 Rx hydroxyzine HCl 50 mg tablet 50 mg PO QID PRN anxiety/hives 11/20/23 04/17/24 04/16/24 Rx #120 tabs trazodone 50 mg tablet 100 mg (2 x 50 mg) PO .HS PRN 11/20/23 04/17/24 04/15/24 Rx insomnia #60 tabs prazosin 2 mg capsule 2 mg PO .HS #30 caps 02/22/24 04/17/24 04/16/24 Rx propranolol 20 mg tablet 20 mg PO BID PRN anxiety #60 tabs 02/22/24 04/17/24 04/17/24 Rx baclofen 10 mg tablet 10 mg PO BID #60 tabs 03/04/24 04/17/24 04/16/24 Rx gabapentin 800 mg tablet 800 mg PO TID #90 tabs 03/04/24 04/17/24 04/17/24 Rx celecoxib 100 mg capsule (Celebrex) 100 mg PO BID 30 days #60 caps 03/13/24 04/17/24 04/03/24 Rx diclofenac sodium 1 % topical gel 2 g topical QID #100 grams 03/13/24 04/17/24 Unknown Rx hydrocodone 10 mg-acetaminophen 1 tab PO .five times daily PRN 04/03/24 04/17/24 04/17/24 Rx 325 mg tablet pain 30 days #150 tabs escitalopram oxalate 20 mg tablet 20 mg PO DAILY 04/17/24 04/17/24 04/16/24 History Allergies Allergy/AdvReac Type Severity Reaction Status Date / Time amoxicillin Allergy ALGY-Anaphy Verified 04/18/24 10:41 laxis bupropion (From Wellbutrin) Allergy ADR-Seizure Verified 04/18/24 10:41 clindamycin Allergy ALGY-Anaphy Verified 04/18/24 10:41 laxis latex Allergy ALGY-Rash Verified 04/18/24 10:41 Penicillins Allergy ALGY-Anaphy Verified 04/18/24 10:41 laxis sumatriptan Allergy Unknown Verified 04/18/24 10:41 Current Medications Generic Name Dose Route Start Last Admin Trade Name Freq PRN Reason Stop Dose Admin Vancomycin HCl 1,000 mg/ 250 mls @ 250 mls/hr 04/18/24 10:34 04/18/24 11:07 Sodium Chloride IV 04/18/24 11:33 250 mls/hr SKIDDER LOADER ONE Administration Protocol Sodium Chloride 1,000 mls @ 30 mls/hr 04/18/24 10:45 04/18/24 11:02 Sodium Chloride 0.9% IV 04/19/24 10:44 30 mls/hr .Q24H JEN Administration PFSH Anesthesia Medical History Psychiatric care Strain of right knee Smoker unmotivated to quit Cough with exposure to COVID-19 virus Acute URI Acute bacterial bronchitis Iron deficiency anemia Anxiety and depression Chronic migraine w/o aura w/o status migrainosus, not intractable Chronic pain in right shoulder Low back pain radiating to right leg Spondylosis without myelopathy or radiculopathy, lumbosacral region Surgical History S/P arthroscopy of right shoulder toal of 2 surgeries 2010-repaired the labrem and rotator, 2013 debrievment to repair rotator Hx of section 2004, 2009, 2016 S/P tubal ligation S/P total hysterectomy (~10/11/18) TVH OVARIES SPARED. Family History Mother Diabetes Hypertension Grandmother Diabetes Cancer SKIN CANCER Hypertension Maternal grandmother Family/Other Hypertension Maternal uncle Ovarian cancer Cousin Maternal aunt Other Lung disease Denies family history of Colon cancer Breast cancer Uterine cancer Social History Smoking and tobacco/nicotine status: never used tobacco/nicotine Substance/Drug Use: never Additional social history: - Tobacco use: Current everyday smoker; 1pk daily Alcohol use: Social Drug use: Denies Data Anesthesia Cardiac Studies: No Data to Display
--- NOTE | 2024-04-18 11:47 | W.PM.OPSUD ---
Documented by User: [email or web address]-BC 04/18/24 11:52 Surgery/Procedure H&P Update DATE OF PROCEDURE: April 18, 2024 DATE H&P PERFORMED: 03/13/24 CHANGES TO PREVIOUS DOCUMENTATION: Verified with patient, no medication or allergy changes. Symptoms remain the same. 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 PRIMARY INDICATION FOR PROCEDURE: Patient has continued pain, instability and discomfort despite conservative treatments. Patient has tried and failed conservative treatments to include anti-inflammatory medications: Topically and orally, bracing, home physical therapy and prior injection therapies. MRI was obtained and it showed that there was moderate chondromalacia of the patella which was advanced for the patient's age. There were known shallow trochlear grooves. Chronic thinning of the medial and lateral meniscus. Noted peripheral extrusion of the lateral meniscus. Patient also had mechanical complaints of instability, intermittent catching and sharp pains with pivoting and twisting motions. After exhaustive conservative interventions, extensive risk versus benefit discussion was had with the patient, in regards to proceeding with left knee arthroscopy 3 with debridement and probable chondroplasty of the posterior patella. PLANNED PROCEDURE: Operation Date: 04/18/24 11:45 Proposed Procedures p Knee Arthroscopy Knee Arthroscopy w/ Debridement(Left) - Angelica Antoine MD s Chondroplasty Of patella(Left) - Angelica Antoine MD Documented by User: Angelica Antoine MD 04/18/24 12:05 Surgery/Procedure H&P Update DATE H&P PERFORMED: 04/08/24 PRIMARY INDICATION FOR PROCEDURE: Patient has continued pain, instability and discomfort despite conservative treatments. Patient has tried and failed conservative treatments to include anti-inflammatory medications: Topically and orally, bracing, home physical therapy and prior injection therapies. MRI was obtained and it showed that there was moderate chondromalacia of the patella which was advanced for the patient's age. There were known shallow trochlear grooves. Chronic thinning of the medial and lateral meniscus. Noted peripheral extrusion of the lateral meniscus. Patient also had mechanical complaints of instability, intermittent catching and sharp pains with pivoting and twisting motions. After exhaustive conservative interventions, extensive risk versus benefit discussion was had with the patient, in regards to proceeding with left knee arthroscopy 3 with debridement and probable chondroplasty of the posterior patella. I saw the patient preoperatively, and confirmed the above findings. She understands the risks and complications of the surgical procedure.
[2024-04-18] MEDS: ROPivacaine 0.5% SDV 30 mL 150 MG INJECTION (12:33)
[2024-04-18] MEDS: morphine 4 mg/mL SDV 1 mL 8 MG XX (12:33)
[2024-04-18] MEDS: fentaNYL 50 mcg/mL INJ 2mL IVP ×2 (13:30→13:40)
[2024-04-18] MEDS: HYDROmorphone 1 mg/mL INJ 1ml 0.5 MG IVP (13:53)
[2024-04-18] MEDS: HYDROcodone-acetaminophen 5-325 mg Tablet 1 TAB PO (14:52)
--- NOTE | 2024-04-18 15:12 | PM.OP ---
Operative Report Date of procedure: April 18, 2024 Pre-op diagnosis: Left knee chondromalacia patella Post-op diagnosis: Left knee chondromalacia patella with medial and lateral meniscal tears Post-op findings: Minimal chondromalacia of the left posterior patella with anterior horn lateral meniscal tear and inner rim tearing of the medial meniscus Procedure done: Left arthroscopic knee surgery with partial medial and lateral meniscectomies and chondroplasty undersurface of patella Implants: None Specimens removed/disposition: Meniscal shavings disposed of Pathology: None Surgeon: Angelica Antoine MD [employer] Owner: None Anesthesia: General (Per LMA, ASA 2) Estimated blood loss (mL): 5 Tourniquet time (min): 31 (At 250 mmHg) IV fluids (mL): 500 Urine output (mL): 0 (No Maya) Complications: None Findings: See above Condition: stable Disposition: PACU (Then return to same-day surgery for discharge to home) Brief History: This 39-year-old woman presented to the clinic complaining of knee pain. She had an MRI which demonstrated moderate chondromalacia of the patella with mild chronic thinning of the medial and lateral meniscus but no acute appearing tears. There was mild peripheral extrusion of the lateral meniscus as well. Patient was seen in the clinic, and conservative nonsurgical measures including anti-inflammatories, physical therapy, and knee bracing did not improve her situation. After discussion, the patient wished to proceed with operative intervention in the form of an arthroscopic knee surgery. Risks and complications were discussed with her in the office. Consents were signed and questions were answered. She was also seen on the day of surgery and given further opportunity to have questions answered. Procedure: Patient was brought to the operating theater and after undergoing general anesthesia per LMA which was well-tolerated, ASA 2, the patient's left lower extremity was prepped and draped in usual fashion utilizing DuraPrep. A tourniquet was placed high on the leg prior to prepping and draping. The tourniquet was elevated prior to commencement of the surgical procedure to 250 mmHg. The tourniquet was elevated to 250 mm for total tourniquet time of 31 minutes. Elevation followed prepping and exsanguination. Prior to commencement of the surgical procedure, a surgical pause was performed. At the time of the surgical pause, we identified the site and side of surgery. We also confirm the patient's identity and appropriate and timely administration of preoperative antibiotics. Preoperative surgical markings were also visualized at this time. Standard arthroscopic portals were utilized including superolateral, inferomedial, and inferolateral portals. The examination commenced in the suprapatellar pouch area where the patient was noted to have chondromalacia on the undersurface of the patella. The arthroscope was then passed into the medial compartment where the anterior horn appeared normal. There is irregularity of the anterior horn the lateral meniscus. This was debrided with a combination of the intra-articular shaver and the intra-articular heat wand. Anterior cruciate ligament was evaluated, palpated, and found to be intact. The leg was placed in a [id number] position. Further evaluation of the meniscus demonstrated that the only irregularity was in the anterior horn as previously noted. This was debrided as noted as well. It was palpated to ensure that it did not displace into the knee joint and it did not. Popliteus was visualized posteriorly as well. The scope was then returned to the medial compartment. Evaluation of the meniscus demonstrated there was degenerative tearing in the midportion of the meniscus along the inner rim. This was debrided with combination of the intra-articular shaver and the intra-articular heat wand. Once this meniscus was addressed, it was palpated to determine whether or not it was displaceable into the joint, and it was not. At that point, the arthroscope was returned to the suprapatellar pouch area where the patient had been noted to have some chondromalacia of the undersurface of the patella. This was debrided with the intra-articular shaver and heat wand. Following debridement of the undersurface of the patella, the scope was passed once again throughout the joint. No further pathology was identified. Attention was then directed to closure. The knee was copiously irrigated and suctioned dry. Following this, each portal was closed with a simple suture followed by Dermabond and Tegaderm. Additionally, the knee was injected with 20 mL of half percent ropivacaine and 8 mg of morphine. Additional 10 mL of ropivacaine was placed about the portals. Sterile dressing was placed consisting of the Tegaderm followed by the Hugo wrap. Patient was returned to Recovery Room in satisfactory condition where she will be discharged home to follow-up in the office as scheduled. There were no complications and no specimens. Related Problem List Diagnoses (1) Acute pain of left knee: (2) Patellofemoral instability of left knee with pain: (3) Tear of medial meniscus of left knee: (4) Tear of lateral meniscus of left knee:
--- NOTE | 2024-04-18 15:25 | ANE.PACU2 ---
Inpatient post-anesthesia follow up: Airway intact: Yes Vital signs: Temperature 97.2 F Pulse Rate 80 Respiratory Rate 17 Blood Pressure 114/76 Pulse Oximetry 96 Oxygen Delivery Me thod Room Air Oxygen Flow Rate 6 Fraction of Inspir ed Oxygen Hydration adequate: Yes Nausea and vomiting: No Pain level: 1 Mental status: Baseline
== END 2024-04-18 15:28 | disposition home or self-care (01) ==
PROVIDERS: PCP Family Medicine; Visit Provider Specialist
PROC: (CPT 29870; principal; 2024-04-18 11:45)
PROC: (CPT 29880; 2024-04-18 11:45)
DX: M22.42 Chondromalacia patellae, left knee (principal); S83.282A Other tear of lateral meniscus, current injury, left knee, initial encounter; S83.242A Other tear of medial meniscus, current injury, left knee, initial encounter; X58.XXXA Exposure to other specified factors, initial encounter; Z79.899 Other long term (current) drug therapy; Z88.8 Allergy status to other drugs, medicaments and biological substances; Z88.0 Allergy status to penicillin; Z91.040 Latex allergy status
CPT/HCPCS: 29880; J0131; J1100; J1171; J2250; J2270; J2371; J2405; J2704; J2795; J3010; J3370; J7030; J7050

== ENCOUNTER 2024-08-20 07:58 | Outpatient (CLI) | payer MEDICAID, SELFPAY ==
--- NOTE | 2024-08-20 08:00 | IR_ITS ---
WS: [id number] LEFT KNEE ARTHROGRAM (FLUOROSCOPY) LEFT knee arthrogram was performed in fluoroscopy prior to MRI evaluation. HISTORY: lateral tear meniscus of left knee COMPARISON: 03/11/2024 FLUOROSCOPY TIME: 0min [id number] # of spot films: 2 Procedure, risks and complications were explained to the patient. Complications include but not limited to bleeding, infection and contrast reaction. Current medications are reviewed. Skin is cleansed with ChloraPrep. Skin is anesthetized with 1% buffered lidocaine. 22-gauge needle is inserted into the LEFT patellofemoral joint. Approximately 40 cc of gadolinium mixture injected without complication. Patient will proceed to MRI evaluation immediately. No complications were encountered. Patient is instructed to watch for post procedure infection or bleeding. Patient is also instructed to contact the radiology department with any concerns. IR/[place] [id number] IMPRESSION: Uncomplicated LEFT knee joint injection prior to MR arthrogram.
--- NOTE | 2024-08-20 08:01 | MR_ITS ---
WS: [id number] MRI left knee pre and post arthrogram images. HISTORY: Pain and swelling LEFT knee with no injury. Medial knee pain. Recent surgery for meniscal repair. Continued pain. COMPARISON: Prior MRI 03/11/2024. Prearthrogram imaging: Normal alignment with no acute marrow edema or fracture. Intrasubstance degeneration of the ACL but no tear. Intact PCL. Medial collateral ligament is normal. Posterior collateral complex is normal. Intermediate signal in the peripheral third posterior horn lateral meniscus. There is additional linear and irregular signal in the anterior horn of the lateral meniscus. Signal within the anterior horn may be associated with the anterior transverse meniscal ligament. The entire length of the anterior transverse meniscal ligament is not identified. On today's MRI examination the anterior transverse meniscal ligament is not visualized. It was well visualized on the prior study. This ligament may be torn. Normal position of the patella. No osteochondral lesions. Cartilage is intact. 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 Predominantly along the lateral tibial plateau. Near full-thickness defects. There is a very tiny amount of subchondral marrow edema in the femoral condyle towards the intercondylar notch. Very mild chondromalacia involving the medial compartment. Small suprapatellar joint effusion. No Butterfield's cyst of any significance. Post arthrogram imaging: No ACL tear. Intact PCL. No no meniscal tear Mild narrowing of the medial and lateral compartments. Near complete full- thickness defect fills with contrast involving the lateral tibial plateau. This is a small defect measuring about 3 mm prior additional more superficial defects are identified. MR/MR knee LT wo/w con [id number] IMPRESSION: 1. Increased signal peripheral third posterior horn lateral meniscus. No fillin g with the injected arthrogram contrast. This may be a prior meniscal tear repa ir site. 2. Nonvisualization of the entire length of the anterior transverse meniscal li gament. This ligament was identified on the study from 03/11/2024 and may now be torn centrally. 3. Mild narrowing of the medial and lateral compartments. 4. 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 No underlying marrow edema. 5. Small amount of subchondral marrow edema lateral femoral condyle towards the intercondylar notch. 6. Small suprapatellar joint effusion. Decreased volume from the prior study of 03/11/2024.
[2024-08-20] MEDS: gadobenate dimeglumine 20 mL vial 3 ML IV (09:28)
[2024-08-20] MEDS: iohexol 240 mg/mL 50 mL Btl 25 ML INTRA-ARTI (09:30)
== END 2024-08-20 07:59 | disposition home or self-care (01) ==
LOC: RAD 07:58
PROVIDERS: PCP Family Medicine; Visit Provider Nurse Practitioner
DX: M23.201 Derangement of unspecified lateral meniscus due to old tear or injury, left knee (principal); M23.204 Derangement of unspecified medial meniscus due to old tear or injury, left knee; M25.362 Other instability, left knee; M94.262 Chondromalacia, left knee
CPT/HCPCS: 27369; 73723; 77002; J9999

== ENCOUNTER → 2024-08-23 13:21 | Outpatient (BNVA) | payer MEDICAID, SELFPAY | PROVIDERS: PCP Family Medicine; Visit Provider Nurse Practitioner | DX: M25.562 Pain in left knee (principal); Z98.890 Other specified postprocedural states | CPT/HCPCS: 73560; 73565 ==

== ENCOUNTER → 2024-11-11 12:10 | Outpatient (BNVA) | payer OTHER, SELFPAY | PROVIDERS: PCP Family Medicine; Visit Provider Family Medicine | DX: R63.4 Abnormal weight loss (principal); Z86.39 Personal history of other endocrine, nutritional and metabolic disease | CPT/HCPCS: 80053; 83690; 84439; 84443; 85025; 86376 ==

== ENCOUNTER → 2024-11-22 11:22 | Outpatient (BNVA) | payer MEDICAID, SELFPAY | PROVIDERS: PCP Family Medicine; Visit Provider Nurse Practitioner | DX: M22.42 Chondromalacia patellae, left knee (principal); M25.362 Other instability, left knee | CPT/HCPCS: 73560; 73565 ==